=== PATIENT | male | born 1940 | race Caucasian/White ===

== ENCOUNTER 2016-09-07 10:03 | Day surgery (SDC) | payer MEDICARE ==
[2016-09-06 10:49] VITALS: BP 165/95; PULSE 81; RESP 20; TEMP 98.2; O2SAT 92
[~2016-09-07] VITALS: Ht 177.8 cm; Wt 90.9 kg
[~2016-09-07 10:03] MED LIST: BUPR300T PO; IBUP-988 PO; MULT1TAB84 PO; NEXI20CA PO; PRAV40TA2; SODIUM CHLOR 0.45% 1000 ML IV SCH; TAMS0.4C4 PO; VITA100021 SL; VITA10006 PO; VITA100064 PO; ceFAZolin 2 GM PREMIX 50 ML IV SCH
[2016-09-07 10:22] VITALS: BP 161/90; PULSE 74; RESP 20; TEMP 98.2; O2SAT 96
[2016-09-07] MEDS ORDERED: SODIUM CHLOR 0.45% 1000 ML IV SCH (10:30)
[2016-09-07] MEDS ORDERED: ceFAZolin 2 GM PREMIX 50 ML IV SCH (10:30)
[2016-09-07 10:53] LABS: AUTOMATED NEUTROPHIL # 5.4 TH/MM3 (1.8-7.7); BASOPHIL # 0.1 TH/MM3 (0-0.2); BASOPHIL % 0.7 % (0.0-2.0); EOSINOPHIL # 0.1 TH/MM3 (0-0.4); EOSINOPHIL % 1.5 % (0.0-4.0); HEMATOCRIT 51.2 % (39.0-51.0); HEMO FLAGS DIFF FINAL; LYMPH % 20.8 % (9.0-44.0); LYMPHOCYTE # 1.6 TH/MM3 (1.0-4.8); MEAN CELL VOLUME 89.5 FL (80.0-100.0); MEAN CORPUSCULAR HEMOGLOBIN 30.1 PG (27.0-34.0); MEAN CORPUSCULAR HGB CONC 33.6 % (32.0-36.0); MONO % 9.3 % (0.0-8.0); NEUT % 67.7 % (16.0-70.0); PLATELET COUNT 191 TH/MM3 (150-450); RED BLOOD COUNT 5.72 MIL/MM3 (4.50-5.90); RED CELL DISTRIBUTION WIDTH 13.8 % (11.6-17.2); WHITE BLOOD COUNT 7.9 TH/MM3 (4.0-11.0)
[2016-09-07 11:00] LABS: APTT (PATIENT) 26.6 SEC (24.3-30.1); PROTHROMBIN TIME - PATIENT 10.9 SEC (9.8-11.6)
[2016-09-07 11:03] LABS: BICARBONATE 28.1 MEQ/L (21.0-32.0); POTASSIUM 3.9 MEQ/L (3.5-5.1)
== END 2016-09-07 11:25 | disposition home or self-care (01) ==
LOC: HROP 10:03 → HRIP 10:04 → HROP 11:25
PROVIDERS: ATTEND Neurological Surgery
DX: G91.2 (Idiopathic) normal pressure hydrocephalus (principal); Z53.9 Procedure and treatment not carried out, unspecified reason
CPT/HCPCS: 80048; 85025; 85610; 85730

== ENCOUNTER 2016-09-13 09:51 | Inpatient (IN) | payer MEDICARE ==
[~2016-09-13] VITALS: Ht 177.8 cm; Wt 91.0 kg
[2016-09-13] VITALS (10 sets, daily range): BP systolic 126–150; BP diastolic 71–96; PULSE 66–89; RESP 16–20; TEMP 97.9–98.6; O2SAT 92–94
[~2016-09-13 09:51] MED LIST changes: -SODIUM CHLOR 0.45% 1000 ML IV SCH; -ceFAZolin 2 GM PREMIX 50 ML IV SCH
[2016-09-13] MEDS ORDERED: MAGNESIUM HYDROXIDE SUSP 30 ML CUP PO PRN (10:45)
[2016-09-13] MEDS ORDERED: ZOLPIDEM TARTRATE 5 MG TAB PO PRN (10:45)
[2016-09-13] MEDS ORDERED: RESP: ALBUTEROL 2.5 MG/3 ML NEB (PRN) NEB (10:45)
[2016-09-13] MEDS ORDERED: SODIUM CHLORIDE 0.9% FLUSH 5 ML FLUSH IVF PRN (10:45)
[2016-09-13] MEDS ORDERED: ceFAZolin 2 GM PREMIX 50 ML IV SCH (10:45)
[2016-09-13] MEDS ORDERED: cloNIDine HCL 0.1 MG TAB PO PRN (10:45)
[2016-09-13] MEDS ORDERED: ACETAMINOPHEN 325 MG TAB PO PRN (10:45)
[2016-09-13] MEDS: DOCUSATE SODIUM 100 MG CAP PO SCH ×2 (10:45→20:57)
[2016-09-13] MEDS ORDERED: ONDANSETRON HCL 4 MG/2 ML VIAL IV PRN (10:45)
[2016-09-13] MEDS ORDERED: ACETAMINOPHEN/HYDROcodone 325 MG/10 MG TAB PO PRN (10:45)
--- NOTE | 2016-09-13 10:57 | HHI.HP ---
HPI Service Neurosurgery Primary Care Physician Kp Hull MD Chief Complaint: NPH History of Present Illness Mr. Bahena is a 76 year old male who was seen in our office for neurosurgical evaluation at the request of Neurologist Dr. Amauri Campo for Normal Pressure Hydrocephalus. Mr. Bahena suffers from progressive gait difficulties for the past couple of years. He also complains of memory difficulties and urinary incontinence. He describes his walking as shuffling. He has good days and bad days. He denies headaches, focal weakness, vomiting, seizures, fevers or chills. His MRI Brain showed evidence of ventriculomegaly. He comes today for placement of lumbar drain. Review of Systems Constitutional: DENIES: Fever, Chills Eyes: DENIES: Diplopia Cardiovascular: DENIES: Chest pain, Palpitations Genitourinary: COMPLAINS OF: Urinary incontinence Musculoskeletal: COMPLAINS OF: Back pain Neurologic: COMPLAINS OF: Abnormal gait, Poor Balance Psychiatric: DENIES: Hallucinations Past Family Social History Allergies: Coded Allergies: Iodine (Verified Adverse Reaction, Intermediate, Anaphylaxis, 09/07/16) Past Medical History Hyperlipidemia Depression GERD Past Surgical History Left rotator cuff surgery Reported Medications Pravastatin 40 Mg Family History MOTHER - colon CA SISTER - breast CA FATHER- Parkinson's disease Social History Alcohol Intake: 0-2 drinks per day Substance Use - denies use Former Smoker Physical Exam Vital Signs Vital Signs Date Time Temp Pulse Resp B/P Pulse Ox O2 Delivery O2 Flow Rate FiO2 09/13/16 10:28 97.9 81 20 144/96 92 Physical Exam Mr. Bahena is alert, awake and oriented to person, place, and month, he has difficulty with year. Speech is fluent. Follows commands well. Memory is 3/ 3 immediate recall, 1/3 after 5 minutes. Cranial nerve examination demonstrates the pupils to be equal, round, and reactive to light. Extra-ocular movements are intact. Facial motor and sensory function are normal and symmetrical. Sternocleidomastoid and trapezius muscles have normal and symmetrical strength. Other cranial nerves are intact. Neck is soft and supple Muscle strength is 5/5 in all muscle groups of both upper extremities including deltoid, biceps, triceps, brachioradialis, wrist extension and timber sprinkler. In the lower extremities, strength is 5/5 in both iliopsoas, quadriceps, hamstrings, plantar flexion, dorsiflexion, and extensor hallicus longus. Sensory examination is intact to light touch in both the upper and lower extremities, symmetrically. Deep tendon reflexes are 1+ and symmetrical in the biceps, triceps, and brachioradialis, bilaterally, in the upper extremities. In the lower extremities , the patellar and Achilles are 1+, bilaterally. There is a bilateral plantar flexion response. Hoffmanns sign is negative. There is no clonus or other abnormal reflexes noted. Cerebellar examination is intact to [id number] test Gait evaluation noted in the office he ambulated unassisted, mildly unsteady with slight bent forward posture, he has decreased arm swings, and mild loss of heel strikes with 3 point pivot turn Imaging MRI Brain 07/10/16 [facility] Ventricular dilation disproportionate to the extra-axial spaces suggestive of NPH Attending Statement We have discussed the physiopathology and clinical symptomatology of patients with normal pressure hydrocephalus. These patients usually present with a triad of gait imbalance, memory loss or mild dementia, and urinary incontinence. Without treatment, there is a slow tendency to progression, and in some patient s the symptomatology could be improved by drainage of cerebrospinal fluid (CSF) . In some cases of suspected normal pressure hydrocephalus, potential improvement with a permanent shunt can be tested by placement of a temporary lumbar drain and daily serial gait assessments. When the patients gait improves after CSF drainage, they may be a candidate for placement of a permanent ventriculoperitoneal shunt. He will be undergoing placement of lumbar drain with CSF drainage per protocol. Neuro: neuro checks every 4 hours Medical management consulted for assistance. Neurology, Dr. Campo consulted to assist in evaluation. Protonix for GI prophylaxis. DVT: SCD and TEDs for dvt prophylaxis. Chemical prophylaxis contraindicated at this time due to lumbar drain. Respiratory: IS every hour, breathing treatments with nebulizers prn PT evaluation before and daily following lumbar drainage Nutrition: Heart Healthy Diet Mary Dixon September 13, 2016 10:57 Mary Dixon September 13, 2016 10:57
[2016-09-13] MEDS ORDERED: MIDAZOLAM HCL 5 MG/5 ML VIAL ONE (11:25)
[2016-09-13] MEDS ORDERED: fentaNYL CITRATE 250 MCG/5 ML AMP ONE (11:26)
[2016-09-13] MEDS ORDERED: PILL SPLITTER OTHER PRN (11:30)
--- NOTE | 2016-09-13 12:19 | PD.RAD ---
Post Procedure Progress Note Pre Procedure Diagnosis: (1) NPH (normal pressure hydrocephalus) Post Procedure Diagnosis: (1) NPH (normal pressure hydrocephalus) Procedure Date: September 13, 2016 Supervising Radiologist: Deven Mehta JR Proceduralist/Assist: Cindy Cantor, RT(R)(), Maxine Baker RT(R)(CV) Anesthesia: Conscious Sedation Plan of Activity Patient to Unit: ROPU Patient Condition: Good See PACS Report for procedural detail/treatment Spinal Procedure Lumbar Drain L3-L4 Fluid Removal (CCs): 12 Fluid Description: Clear Puncture Time: 11:45 Findings: Opening pressure: 33 cmH2O. Tip of cath at T12 Jr. Tyson,Deven Oates MD September 13, 2016 12:19
[2016-09-13 13:57] LABS: GROSS BLOOD TUBE #1 TRACE (0); SUPERNATE COLOR TUBE #1 CLEAR (CLEAR); VOLUME TUBE # 1 4.4 ML
[2016-09-13 13:58] LABS: CSF LYMPHOCYTES 100 %; CSF NEUTROPHILS 0 %; GROSS BLOOD TUBE #2 0 (0); GROSS BLOOD TUBE #3 0 (0); GROSS BLOOD TUBE #4 0 (0); SUPERNATE COLOR TUBE #2 CLEAR (CLEAR); SUPERNATE COLOR TUBE #3 CLEAR (CLEAR); SUPERNATE COLOR TUBE #4 CLEAR (CLEAR); VOLUME TUBE # 2 2.5 ML; VOLUME TUBE # 3 2.9 ML; WBC TUBE #4 5 /MM3 (0-10)
--- NOTE | 2016-09-13 14:28 | RADRPT ---
EXAM DATE/TIME: 09/13/2016 11:23 [facility] COMPARISON: No previous studies available for comparison. INDICATIONS : Abnormal gait and balance. MEDICAL HISTORY : 1.Hyperlipidemia 2.Depression 3. GERD 4. Spinal stenosis 5. Incontinence SURGIAL HISTORY : 1. Rotator cuff repair ENCOUNTER: Initial ACUITY: 1 month PAIN SCORE: 0/10 LUMBAR PUNCTURE TIME: 1145 hours FLUORO TIME: 2.7 minutes IMAGE SERIES: 0 SEDATION TIME: 30 minutes LEVEL: Tip of lumbar drain was placed at T11-T12 disc space OPENING PRESSURE: 33 cm of water FLUID: 12 cc of clear CSF was collected and sent to the laboratory for analysis. MEDICATION(S): 1.) 2.5 mg midazolam (Versed) IV 2.) 125 mcg fentanyl (Sublimaze) IV Prophylactic antibiotics were administered with appropriate pre-procedure timing. DEVICE(S): 1.) 5 Faroese lumbar drain catheter PROCEDURE : 1. Fluoroscopically guided lumbar drain placement. 2. Conscious sedation with continuous EKG and oximetry monitoring. The risks, benefits and alternatives to the procedure were explained and verbal and written consent w as obtained. The site was prepped in sterile fashion. Full sterile technique was used, including ca p, mask, sterile gloves and gown and a large sterile sheet. Hand hygiene and 2% chlorhexidine and/or betadine/alcohol prep was utilized per protocol for cutaneous antisepsis. The skin and subcutaneous tissues were infiltrated with local anesthetic solution. With fluoroscopic guidance the lumbar thecal sac was punctured with a 14 gauge Touhy needle and a lum bar drain was placed with its tip at the level as described above and the catheter was sutured in gregorio ce. CSF was identified returning from the catheter at the termination of the procedure. Conscious sedation was performed with the prescribed dosages and duration as above in the presence of an independent trained radiology nurse to assist in the monitoring of the patient. EKG and oximetry remained stable throughout the procedure. The patient tolerated the procedure well and there were n o complications. The patient was sent to post anesthesia recovery in stable condition. CONCLUSION: Uncomplicated lumbar drain placement as above. Opening pressure at 33 cm of water. Samples of CSF sen t to the lab. Deven Mehta Jr., MD on September 13, 2016 at 14:25 Board Certified Radiologist. This report was verified electronically.
--- NOTE | 2016-09-13 16:02 | PD.CONS ---
HPI Service [facility] Hospitalists Consult Requested By Dr. Gonzalez Reason for Consult Medical management Primary Care Physician Kp Hull MD Diagnoses: History of Present Illness This a pleasant 76-year-old male with significant past medical history of NPH. Patient endorses progressive gait difficulties over the last couple years associated with problems with memory and urinary incontinence. Indicates he walks with a shuffle and has had a couple of falls in the last 2 weeks. He has been followed by neurologist Dr. Amauri Campo. He had an MRI of the brain that did show evidence of ventriculomegaly. He was referred to Dr. Gonzalez. Patient was admitted and underwent placement of lumbar drain. Patient is now on evaluated in ROPU. He tolerated procedure well, denies any discomfort. Hospitalist services are requested for medical management. (Hannah Hooks ) Review of Systems Constitutional: DENIES: Diaphoretic episodes, Fatigue, Fever, Weight gain, Weight loss, Chills, Dizziness, Change in appetite, Night Sweats Endocrine: DENIES: Heat/cold intolerance, Polydipsia, Polyuria, Polyphagia Eyes: DENIES: Blurred vision, Diplopia, Eye inflammation, Eye pain, Vision loss , Photosensitivity, Double Vision Ears, nose, mouth, throat: DENIES: Tinnitus, Hearing loss, Vertigo, Nasal discharge, Oral lesions, Throat pain, Hoarseness, Ear Pain, Running Nose, Epistaxis, Sinus Pain, Toothache, Odynophagia Respiratory: DENIES: Apneas, Cough, Snoring, Wheezing, Hemoptysis, Sputum production, Shortness of breath Cardiovascular: DENIES: Chest pain, Palpitations, Syncope, Dyspnea on Exertion , PND, Lower Extremity Edema, Orthopnea, Claudication Gastrointestinal: DENIES: Abdominal pain, Black stools, Bloody stools, Constipation, Diarrhea, Nausea, Vomiting, Difficulty Swallowing, Anorexia Genitourinary: COMPLAINS OF: Urinary incontinence, DENIES: Sexual dysfunction , Urinary frequency, Urgency, Hematuria, Dysuria, Nocturia, Penile Discharge, Testicular Pain, Testicular Swelling Musculoskeletal: DENIES: Joint pain, Muscle aches, Stiffness, Joint Swelling, Back pain, Neck pain Integumentary: DENIES: Abnormal pigmentation, Nail changes, Pruritus, Rash Hematologic/lymphatic: DENIES: Bruising, Lymphadenopathy Immunologic/allergic: DENIES: Eczema, Urticaria Neurologic: COMPLAINS OF: Abnormal gait, Poor Balance, DENIES: Headache, Localized weakness, Paresthesias, Seizures, Speech Problems, Tremor Psychiatric: COMPLAINS OF: Confusion (memory difficulty), DENIES: Anxiety, Mood changes, Depression, Hallucinations, Agitation, Suicidal Ideation, Homicidal Ideation, Delusions (Hannah Hooks) Past Family Social History Past Medical History Spinal stenosis Urinary incontinence Memory problems Spinal stenosis Hyperlipidemia Depression GERD Past Surgical History Left rotator cuff surgery Reported Medications Reported Meds & Active Scripts Active Reported Advil (Ibuprofen) 200 Mg Tab 400 Mg PO BID Vitamin D (Cholecalciferol) 1,000 Unit Tab 2,000 Units PO DAILY Multivitamin Adults (Multiple Vitamins W/ Minerals) 1 Tab 1 Tab PO DAILY Vitamin E 1,000 Unit Cap 1,000 Units PO DAILY Vitamin B-12 (Cyanocobalamin) 1,000 Mcg Subl 500 Mcg SL DAILY Nexium (Esomeprazole DR) 20 Mg Capdr 20 Mg PO DAILY Bupropion HCl ER 24 HR (Bupropion HCl) 300 Mg Tab 300 Mg PO DAILY Tamsulosin (Tamsulosin HCl) 0.4 Mg Cap 0.4 Mg PO HS Pravastatin 40 Mg Tab (Hannah Hooks) Allergies: Coded Allergies: Iodine (Verified Adverse Reaction, Intermediate, Anaphylaxis, 09/07/16) Active Ordered Medications Inpatient Medications Acetaminophen (Tylenol) 650 mg Q4H PRN PO TEMPERATURE > 101.5 F; Start 09/13/16 at 10:45 Acetaminophen/ Hydrocodone Bitart ([place]dwell 10-325 Mg) 2 tab Q4H PRN PO PAIN SCALE 6 TO 10; Start 09/13/16 at 10:45 Albuterol Sulfate 2.5 mg 2.5 mg Q4HR NEB PRN NEB WHEEZING; Start 09/13/16 at 10: 45 Bupropion HCl (Wellbutrin Sr) 150 mg BID PO ; Start 09/14/16 at 09:00 Cefazolin Sodium/ Dextrose (Ancef 2 Gm Premix) 50 ml @ 100 mls/hr FLY WORKER IV Last administered on 09/13/16t 11:43; Start 09/13/16 at 10:45; Stop 09/16/16 at 10: 44 Cholecalciferol (Vitamin D3) 2,000 units DAILY PO ; Start 09/14/16 at 09:00 Clonidine (Catapres) 0.1 mg Q6H PRN PO SYS BP GREATER THAN 170 MMHG; Start 09/13 at 10:45 Cyanocobalamin (Vitamin B12) 500 mcg DAILY PO ; Start 09/14/16 at 09:00 Docusate Sodium (Colace) 100 mg BID PO ; Start 09/13/16 at 10:45 IV Flush (NS Flush) 2 ml BID IVF ; Start 09/13/16 at 10:45 Magnesium Hydroxide (Milk Of Magnesia Liq) 30 ml DAILY PRN PO CONSTIPATION; Start 09/13/16 at 10:45 Miscellaneous (Pill Splitter) 1 ea UNSCH PRN OTHER SEE LABEL COMMENTS; Start at 11:30 Multivitamins/ Minerals Therapeutic (Theragran M Tab) 1 tab DAILY PO ; Start 09/14/16 at 09:00 Ondansetron HCl (Zofran Inj) 4 mg Q6H PRN IV NAUSEA OR VOMITING; Start 09/13/16 at 10:45 Pantoprazole Sodium (Protonix) 40 mg DAILY PO ; Start 09/13/16 at 10:45 Pravastatin Sodium (Pravachol) 40 mg HS PO ; Start 09/13/16 at 21:00 Tamsulosin HCl (Flomax) 0.4 mg HS PO ; Start 09/13/16 at 21:00 Vitamin E (Vitamin E) 800 units DAILY PO ; Start 09/14/16 at 09:00 Zolpidem Tartrate (Ambien) 5 mg HS PRN PO INSOMNIA; Start 09/13/16 at 10:45 Family History Mother with history of colon cancer Sister With history of breast cancer Father with history of Parkinson's disease Social History Patient is , lives at home and . Doesn't use any assistive devices. Drinks small glass of scotch a day. Quit smoking in the 1960s. No illegal drug use. (Hannah Hooks) Physical Exam Vital Signs Vital Signs Date Time Temp Pulse Resp B/P Pulse Ox O2 Delivery O2 Flow Rate FiO2 09/13/16 10:36 92 Room Air 09/13/16 10:28 97.9 81 20 144/96 92 Physical Exam GENERAL: This is a well-nourished, well-developed patient, in no apparent distress. SKIN: No rashes, ecchymoses or lesions. Cool and dry. HEAD: Atraumatic. Normocephalic. No temporal or scalp tenderness. EYES: Pupils equal round and reactive. Extraocular motions intact. No scleral icterus. No injection or drainage. ENT: Nose without bleeding, purulent drainage or septal hematoma. Throat without erythema, tonsillar hypertrophy or exudate. Uvula midline. Airway patent. NECK: Trachea midline. No JVD or lymphadenopathy. Supple, nontender, no meningeal signs. CARDIOVASCULAR: Regular rate and rhythm without murmurs, gallops, or rubs. RESPIRATORY: Clear to auscultation. Breath sounds equal bilaterally. No wheezes , rales, or rhonchi. GASTROINTESTINAL: Abdomen soft, non-tender, nondistended. No hepato-splenomegaly , or palpable masses. No guarding. MUSCULOSKELETAL: Extremities without clubbing, cyanosis, or edema. No joint tenderness, effusion, or edema noted. No calf tenderness. Negative Homans sign bilaterally. NEUROLOGICAL: Awake and alert. Cranial nerves II through XII intact. Motor and sensory grossly within normal limits. Five out of 5 muscle strength in all muscle groups. Normal speech. Laboratory Laboratory Tests Test 09/13/16 11:48 CSF Volume (Tube 1) 4.4 CSF Supernatant Color (tube 1) CLEAR CSF Gross Blood (Tube 1) TRACE CSF Volume (Tube 2) 2.5 CSF Supernatant Color (tube 2) CLEAR CSF Gross Blood (Tube 2) 0 CSF Volume (Tube 3) 2.9 CSF Supernatant Color (tube 3) CLEAR CSF Gross Blood (Tube 3) 0 CSF Volume (Tube 4) 3.0 CSF Supernatant Color (tube 4) CLEAR CSF Gross Blood (Tube 4) 0 CSF WBC (Tube 4) 5 CSF RBC (Tube 4) 0 CSF Neutrophils 0 CSF Lymphocytes 100 CSF Glucose 60 CSF Total Protein 55.9 Date/Time Procedure Status Source Growth 09/13/16 11:48 Gram Stain - Final Resulted Cerebral Spinal Fluid Lumbar Puncture 09/13/16 11:48 CSF Culture Resulted Cerebral Spinal Fluid Lumbar Puncture Pending (Hannah Hooks) Imaging Last Impressions Lumbar Puncture Fluoroscopy 09/13/16 1032 Signed Impressions: Service Date/Time: Tuesday, September 13, 2016 11:23 - CONCLUSION: Uncomplicated lumbar drain placement as above. Opening pressure at 33 cm of water. Samples of CSF sent to the lab. Deven Mehta Jr., MD (Hannah Hooks) A/P Diagnosis: (1) NPH (normal pressure hydrocephalus) (2) Dyslipidemia (3) Depression (4) Memory deficit (5) Falls Assessment and Plan Thank you for this consultation, we will assist with medical management 76-year-old male with recent diagnosis of NPH, endorses history of progressive gait difficulties associated with poor memory and urinary incontinence. Underwent placement of lumbar drain. Continue with neuro checks Lumbar drain management -Monitor CSF results -Physical therapy orders per Dr. Gonzalez Dyslipidemia Continue home medications Depression, stable Continue home medications History of falls, has had 2 in the last 2 weeks. Physical therapy for evaluation and treatment Will need home health care with physical therapy when discharge Home medications reviewed, already initiated SCDs for DVT prophylaxis Plan of care has been discussed with the patient and his , RN and attending. Further management of the patient will be dependent on the hospital course This patient was seen by myself and Dr. Rangel, this consultation is written on his behalf (Hannah Hooks) Assessment and Plan pt is seen & Examined d/w PT d/w Hannah agree w above cont current tx am labs PT eval will f/u (Krishan Rangel MD) Problem Qualifiers (1) Depression: Qualified Code: F32.9 - Depression, unspecified depression type (2) Falls: Qualified Code: W19.XXXD - Falls, subsequent encounter Hannah Hooks September 13, 2016 16:02 Krishan Rangel MD September 13, 2016 17:20
--- NOTE | 2016-09-13 17:43 | PD.CONS ---
History of Present Illness Service Neurology Consult Requested By nsx Reason for Consult nph Primary Care Physician Kp Hull MD History of Present Illness 76-year-old male with significant past medical history of NPH. Patient endorses progressive gait difficulties over the last couple years associated with problems with memory and urinary incontinence. Indicates he walks with a shuffle and has had a couple of falls in the last 2 weeks. MRI of the brain that did show evidence of ventriculomegaly. He is admitted for lp drain trial. He is followed in our office. he has insomnia, depression as co-morbidities. Review of Systems as above and admit hp Past Family Social History Past Medical History Spinal stenosis Urinary incontinence Memory problems Spinal stenosis Hyperlipidemia Depression GERD Past Surgical History Left rotator cuff surgery Reported Medications Reported Meds & Active Scripts Active Reported Advil (Ibuprofen) 200 Mg Tab 400 Mg PO BID Vitamin D (Cholecalciferol) 1,000 Unit Tab 2,000 Units PO DAILY Multivitamin Adults (Multiple Vitamins W/ Minerals) 1 Tab 1 Tab PO DAILY Vitamin E 1,000 Unit Cap 1,000 Units PO DAILY Vitamin B-12 (Cyanocobalamin) 1,000 Mcg Subl 500 Mcg SL DAILY Nexium (Esomeprazole DR) 20 Mg Capdr 20 Mg PO DAILY Bupropion HCl ER 24 HR (Bupropion HCl) 300 Mg Tab 300 Mg PO DAILY Tamsulosin (Tamsulosin HCl) 0.4 Mg Cap 0.4 Mg PO HS Allergies: Coded Allergies: Iodine (Verified Adverse Reaction, Intermediate, Anaphylaxis, 09/07/16) Family History Father with history of Parkinson's disease Social History Patient is , lives at home and . rare etohQuit smoking No illegal drug use Review of Systems All other ROS: ROS reviewed as documented in chart Past Family Social History Allergies: Coded Allergies: Iodine (Verified Adverse Reaction, Intermediate, Anaphylaxis, 09/07/16) Active Ordered Medications Current Medications Medications (Trade) Dose Ordered Sig/Marlene Route Start Time Stop Time Status Last Admin (NS Flush) 2 ml UNSCH PRN IVF 09/13/16 10:45 (NS Flush) 2 ml BID IVF 09/13/16 10:45 (Colace) 100 mg BID PO 09/13/16 10:45 (Milk Of Magnesia Liq) 30 ml DAILY PRN PO 09/13/16 10:45 (Protonix) 40 mg DAILY PO 09/13/16 10:45 (Zofran Inj) 4 mg Q6H PRN IV 09/13/16 10:45 (Sayre 10-325 Mg) 1 tab Q4H PRN PO 09/13/16 10:45 (Sayre 10-325 Mg) 2 tab Q4H PRN PO 09/13/16 10:45 (Catapres) 0.1 mg Q6H PRN PO 09/13/16 10:45 (Tylenol) 650 mg Q4H PRN PO 09/13/16 10:45 (Ambien) 5 mg HS PRN PO 09/13/16 10:45 (Wellbutrin Sr) 150 mg BID PO 09/14/16 09:00 (Vitamin D3) 2,000 units DAILY PO 09/14/16 09:00 (Vitamin B12) 500 mcg DAILY PO 09/14/16 09:00 (Theragran M Tab) 1 tab DAILY PO 09/14/16 09:00 (Pravachol) 40 mg HS PO 09/13/16 21:00 (Flomax) 0.4 mg HS PO 09/13/16 21:00 (Vitamin E) 800 units DAILY PO 09/14/16 09:00 (Pill Splitter) 1 ea UNSCH PRN OTHER 09/13/16 11:30 Exam I&O / VS Vital Signs Date Time Temp Pulse Resp B/P Pulse Ox O2 Delivery O2 Flow Rate FiO2 09/13/16 10:36 92 Room Air 09/13/16 10:28 97.9 81 20 144/96 92 General: Alert and Oriented, No acute distress Eye: EOMI Respiratory: Non-labored respirations Neurologic: Alert, Oriented, Normal motor, CN II-XII intact, Normal DTR's Psychiatric: Cooperative, Appropriate mood & affect, Normal judgement, Non- suicidal Review/Management Diagnosis/Plan: (1) NPH (normal pressure hydrocephalus) Plan: lumbar drain trial follow exam/gait (2) Depression Plan: wellbutrin (3) Insomnia Plan: ambien (4) Dyslipidemia Plan: statin Problem Qualifiers (1) Depression: Qualified Code: F32.9 - Depression, unspecified depression type (2) Insomnia: Qualified Code: G47.00 - Insomnia, unspecified type Darrell Naqvi MD September 13, 2016 17:43
[2016-09-13] MEDS: PRAVASTATIN SOD 40 MG TAB PO SCH (20:44)
[2016-09-13] MEDS: SODIUM CHLORIDE 0.9% FLUSH 5 ML FLUSH IVF SCH (20:44)
[2016-09-13] MEDS ORDERED: TAMSULOSIN HCL 0.4 MG CAP PO SCH (21:00)
[2016-09-14] VITALS: BP 154/83; PULSE 67; RESP 20; TEMP 98.9; O2SAT 95
[2016-09-14 05:55] VITALS: BP 147/69; PULSE 65; RESP 20; TEMP 98; O2SAT 95
[2016-09-14] MEDS: DOCUSATE SODIUM 100 MG CAP PO SCH ×2 (07:43→21:21)
[2016-09-14 07:44] LABS: HEMATOCRIT 49.3 % (39.0-51.0); MEAN CELL VOLUME 89.1 FL (80.0-100.0); MEAN CORPUSCULAR HEMOGLOBIN 30.6 PG (27.0-34.0); MEAN CORPUSCULAR HGB CONC 34.3 % (32.0-36.0); PLATELET COUNT 169 TH/MM3 (150-450); RED BLOOD COUNT 5.53 MIL/MM3 (4.50-5.90); RED CELL DISTRIBUTION WIDTH 13.4 % (11.6-17.2); REVIEW FLAG FINAL; WHITE BLOOD COUNT 8.1 TH/MM3 (4.0-11.0)
[2016-09-14] MEDS: PANTOPRAZOLE SOD 40 MG DELAYED RELEASE TAB PO SCH (07:45)
[2016-09-14] MEDS: CHOLECALCIFEROL (VIT D3) 1000 UNIT TAB PO SCH (07:45)
[2016-09-14] MEDS: MULTIVITAMINS/MINERALS THERAPEUTIC TAB PO SCH (07:45)
[2016-09-14] MEDS: VITAMIN E 400 UNIT CAP PO SCH (07:45)
[2016-09-14] MEDS: SODIUM CHLORIDE 0.9% FLUSH 5 ML FLUSH IVF SCH ×2 (07:46→21:00)
[2016-09-14] MEDS: CYANOCOBALAMIN 1,000 MCG TAB PO SCH (07:46)
[2016-09-14] MEDS: buPROPion HCL 150 MG SUSTAINED RELEASE TAB PO SCH ×2 (07:46→21:21)
[2016-09-14 08:05] LABS: BICARBONATE 28.7 MEQ/L (21.0-32.0); POTASSIUM 4.1 MEQ/L (3.5-5.1)
[2016-09-14 08:11] VITALS: BP 138/70; PULSE 63; RESP 18; TEMP 95.7; O2SAT 95
[2016-09-14] MEDS ORDERED: TAMSULOSIN HCL 0.4 MG CAP PO SCH (09:00)
[2016-09-14] MEDS: ACETAMINOPHEN/HYDROcodone 325 MG/10 MG TAB PO PRN (09:43)
--- NOTE | 2016-09-14 11:01 | HHI.PR ---
Subjective Remarks Forgetful Oriented 3 Ambulated with PT, believes that his gait was better Lumbar drain in place No chest pain No shortness of breath No fever at bedside Objective Objective Results - Vital Signs Date Time Temp Pulse Resp B/P Pulse Ox O2 Delivery O2 Flow Rate FiO2 09/14/16 08:11 95.7 63 18 138/70 95 09/14/16 05:55 98.0 65 20 147/69 95 09/14/16 00:30 Room Air 09/14/16 00:00 98.9 67 20 154/83 95 09/13/16 20:00 98.2 66 18 139/79 94 09/13/16 18:24 98.6 73 20 139/86 93 09/13/16 15:00 81 16 139/75 94 09/13/16 14:00 75 16 126/71 94 09/13/16 13:30 86 16 133/73 94 09/13/16 13:00 80 16 129/76 94 09/13/16 12:30 69 16 132/87 94 09/13/16 12:15 69 16 145/83 94 09/13/16 12:10 98.3 89 16 150/82 94 I/O 09/13/16 09/13/16 09/13/16 09/14/16 09/14/16 09/14/16 07:00 15:00 23:00 07:00 15:00 23:00 Intake Total 240 ml Output Total 40 ml 230 ml 620 ml 30 ml Balance -40 ml 10 ml -620 ml -30 ml Intake Oral 240 ml Output Urine Total 200 ml 500 ml Drainage Total 40 ml 30 ml 120 ml 30 ml # Bowel Movements 0 0 Result Diagram: 09/14/16 0605 09/14/16 0605 Imaging Last Impressions Lumbar Puncture Fluoroscopy 09/13/16 1032 Signed Impressions: Service Date/Time: Tuesday, September 13, 2016 11:23 - CONCLUSION: Uncomplicated lumbar drain placement as above. Opening pressure at 33 cm of water. Samples of CSF sent to the lab. Deven Mehta Jr., MD Other Results Laboratory Tests Test 09/13/16 09/14/16 11:48 06:05 CSF Volume (Tube 1) 4.4 CSF Supernatant Color (tube 1) CLEAR CSF Gross Blood (Tube 1) TRACE CSF Volume (Tube 2) 2.5 CSF Supernatant Color (tube 2) CLEAR CSF Gross Blood (Tube 2) 0 CSF Volume (Tube 3) 2.9 CSF Supernatant Color (tube 3) CLEAR CSF Gross Blood (Tube 3) 0 CSF Volume (Tube 4) 3.0 CSF Supernatant Color (tube 4) CLEAR CSF Gross Blood (Tube 4) 0 CSF WBC (Tube 4) 5 CSF RBC (Tube 4) 0 CSF Neutrophils 0 CSF Lymphocytes 100 CSF Glucose 60 CSF Total Protein 55.9 White Blood Count 8.1 Red Blood Count 5.53 Hemoglobin 16.9 Hematocrit 49.3 Mean Corpuscular Volume 89.1 Mean Corpuscular Hemoglobin 30.6 Mean Corpuscular Hemoglobin 34.3 Concent Red Cell Distribution Width 13.4 Platelet Count 169 Mean Platelet Volume 10.3 Sodium Level 139 Potassium Level 4.1 Chloride Level 104 Carbon Dioxide Level 28.7 Anion Gap 6 Blood Urea Nitrogen 15 Creatinine 1.12 Estimat Glomerular Filtration 64 Rate Random Glucose 98 Calcium Level 9.1 Date/Time Procedure Status Source Growth 09/13/16 11:48 Gram Stain - Final Resulted Cerebral Spinal Fluid Lumbar Puncture 09/13/16 11:48 CSF Culture - Preliminary Resulted Cerebral Spinal Fluid Lumbar Puncture NO GROWTH IN 24 HOURS. ROS General: Other (forgetful, 12 point ROS completed, negative except as noted above ) Neuro/MS: Other (unsteady gait ) Physical Exam Physical Exam GENERAL: This is a well-nourished, well-developed patient, in no apparent distress. SKIN: No rashes, ecchymoses or lesions. Cool and dry. HEAD: Atraumatic. Normocephalic. No temporal or scalp tenderness. EYES: Pupils equal round and reactive. Extraocular motions intact. No scleral icterus. No injection or drainage. ENT: Nose without bleeding, purulent drainage or septal hematoma. Throat without erythema, tonsillar hypertrophy or exudate. Uvula midline. Airway patent. NECK: Trachea midline. No JVD or lymphadenopathy. Supple, nontender, no meningeal signs. CARDIOVASCULAR: Regular rate and rhythm without murmurs, gallops, or rubs. RESPIRATORY: Clear to auscultation. Breath sounds equal bilaterally. No wheezes , rales, or rhonchi. GASTROINTESTINAL: Abdomen soft, non-tender, nondistended. No hepato-splenomegaly , or palpable masses. No guarding. MUSCULOSKELETAL: Extremities without clubbing, cyanosis, or edema. No joint tenderness, effusion, or edema noted. No calf tenderness. Negative Homans sign bilaterally. Lumbar drain in place NEUROLOGICAL: Awake and alert. Cranial nerves II through XII intact. Motor and sensory grossly within normal limits. Five out of 5 muscle strength in all muscle groups. Normal speech Urinary Catheter: No Vascular Central Line Catheter: No A/P Diagnosis: (1) NPH (normal pressure hydrocephalus) (2) Dyslipidemia (3) Depression (4) Memory deficit (5) Falls Assessment and Plan 76-year-old male with recent diagnosis of NPH, endorses history of progressive gait difficulties associated with poor memory and urinary incontinence. Underwent placement of lumbar drain. Continue with neuro checks Lumbar drain management to continue for now. Further recommendations per Dr. Gonzalez -Monitor CSF results -PT for ambulation -Dr. Juan following Dyslipidemia Continue home medications Depression, stable Continue home medications History of falls, has had 2 in the last 2 weeks. Physical therapy for evaluation and treatment Will need home health care with physical therapy when discharge SCDs for DVT prophylaxis continue with present tx labs reviewed, stable continue to monitor D/W RN D/W Dr. Rangel D/W pt. This patient was seen by myself and Dr. Rangel, this note is written on his behalf Problem Qualifiers (1) Depression: Qualified Code: F32.9 - Depression, unspecified depression type (2) Falls: Qualified Code: W19.XXXD - Falls, subsequent encounter Hannah Hooks September 14, 2016 11:01
--- NOTE | 2016-09-14 11:53 | HHI.NSPN ---
(Mary Dixon) Note Status Status: Progress Note (Mary Dixon) Interval History Interval History day 1 s/p placement of lumbar drain, pt currently ambulating with PT, taking longer length of stride compared to baseline. He denies headaches, pain, nausea or vomiting. (Mary Dixon) Labs, Micro, & Vital Signs Results Date Time Temp Pulse Resp B/P Pulse Ox O2 Delivery O2 Flow Rate FiO2 09/14/16 08:11 95.7 63 18 138/70 95 09/14/16 05:55 98.0 65 20 147/69 95 09/14/16 00:30 Room Air 09/14/16 00:00 98.9 67 20 154/83 95 09/13/16 20:00 98.2 66 18 139/79 94 09/13/16 18:24 98.6 73 20 139/86 93 09/13/16 15:00 81 16 139/75 94 09/13/16 14:00 75 16 126/71 94 09/13/16 13:30 86 16 133/73 94 09/13/16 13:00 80 16 129/76 94 09/13/16 12:30 69 16 132/87 94 09/13/16 12:15 69 16 145/83 94 09/13/16 12:10 98.3 89 16 150/82 94 09/14/16 07:00 Intake Total 240 ml Output Total 890 ml Balance -650 ml Constitutional Vital Signs Date Time Temp Pulse Resp B/P Pulse Ox O2 Delivery O2 Flow Rate FiO2 09/14/16 08:11 95.7 63 18 138/70 95 09/14/16 05:55 98.0 65 20 147/69 95 09/14/16 00:30 Room Air 09/14/16 00:00 98.9 67 20 154/83 95 09/13/16 20:00 98.2 66 18 139/79 94 09/13/16 18:24 98.6 73 20 139/86 93 09/13/16 15:00 81 16 139/75 94 09/13/16 14:00 75 16 126/71 94 09/13/16 13:30 86 16 133/73 94 09/13/16 13:00 80 16 129/76 94 09/13/16 12:30 69 16 132/87 94 09/13/16 12:15 69 16 145/83 94 09/13/16 12:10 98.3 89 16 150/82 94 09/14/16 07:00 Intake Total 240 ml Output Total 890 ml Balance -650 ml (Mary Dixon) Review of Systems/Exam Exam Mr. Bahena is alert. Speech is fluent. Lumbar drain in place, secured, currently clamped. CSF clear. Cranial nerve examination: pupils equal, round, and reactive to light. EOMs are intact. Facial motor are normal and symmetrical. Sternocleidomastoid and trapezius muscles have normal and symmetrical strength. Other cranial nerves are intact. Neck is soft and supple. Muscle strength is 5/5 in all muscle groups of both upper extremities including deltoid, biceps, triceps and knowledge management consultant. In the lower extremities, strength is 5/5 in both iliopsoas, quadriceps, hamstrings, plantar flexion, dorsiflexion, and extensor hallicus longus. Sensory examination is intact to light touch in both the upper and lower extremities, symmetrically. Gait: ambulated unassisted appears to be walking with improved length of stride compared to his evaluation in the office (Mary Dixon) Medications Current Medications Current Medications Medications (Trade) Dose Ordered Sig/Marlene Route PRN Reason Start Time Stop Time Status Last Admin Dose Admin IV Flush (NS Flush) 2 ml UNSCH PRN IVF FLUSH AFTER USING IV ACCESS 09/13/16 10:45 IV Flush (NS Flush) 2 ml BID IVF 09/13/16 10:45 09/14/16 07:46 Docusate Sodium (Colace) 100 mg BID PO 09/13/16 10:45 Magnesium Hydroxide (Milk Of Magnesia Liq) 30 ml DAILY PRN PO CONSTIPATION 09/13/16 10:45 Pantoprazole Sodium (Protonix) 40 mg DAILY PO 09/13/16 10:45 09/14/16 07:45 Ondansetron HCl (Zofran Inj) 4 mg Q6H PRN IV NAUSEA OR VOMITING 09/13/16 10:45 Acetaminophen/ Hydrocodone Bitart ([place] 10-325 Mg) 1 tab Q4H PRN PO PAIN SCALE 1 TO 5 09/13/16 10:45 Acetaminophen/ Hydrocodone Bitart ([place] 10-325 Mg) 2 tab Q4H PRN PO PAIN SCALE 6 TO 10 09/13/16 10:45 09/14/16 09:43 Clonidine (Catapres) 0.1 mg Q6H PRN PO SYS BP GREATER THAN 170 MMHG 09/13/16 10:45 Acetaminophen (Tylenol) 650 mg Q4H PRN PO TEMPERATURE > 101.5 F 09/13/16 10:45 Zolpidem Tartrate (Ambien) 5 mg HS PRN PO INSOMNIA 09/13/16 10:45 09/13/16 20:51 Bupropion HCl (Wellbutrin Sr) 150 mg BID PO 09/14/16 09:00 09/14/16 07:46 Cholecalciferol (Vitamin D3) 2,000 units DAILY PO 09/14/16 09:00 09/14/16 07:45 Cyanocobalamin (Vitamin B12) 500 mcg DAILY PO 09/14/16 09:00 09/14/16 07:46 Multivitamins/ Minerals Therapeutic (Theragran M Tab) 1 tab DAILY PO 09/14/16 09:00 09/14/16 07:45 Pravastatin Sodium (Pravachol) 40 mg HS PO 09/13/16 21:00 09/13/16 20:44 Vitamin E (Vitamin E) 800 units DAILY PO 09/14/16 09:00 09/14/16 07:45 Miscellaneous (Pill Splitter) 1 ea UNSCH PRN OTHER SEE LABEL COMMENTS 09/13/16 11:30 Tamsulosin HCl (Flomax) 0.4 mg DAILY PO 09/15/16 09:00 (Mary Dixon) Medical Decision Making MDM Remarks 76 y/o male with suspected NPH, s/p placement of lumbar drain, day 1 (Mary Dixon) Plan Plan Remarks improvement of gait noted, will continue draining CSF today per Dr. Gonzalez to reassess again tomorrow cont lumbar draining per protocol appreciate medical and neurology assistance cont nonchemical dvt prophylaxis in view of lumbar drain (Mary Dixon) Attending Statement The exam, history, and the medical decision-making described in the above note were completed with the assistance of the mid-level provider. I reviewed and agree with the findings presented. I attest that I had a [id number] encounter with the patient on the same day, and personally performed and documented my assessment and findings in the medical record. (Artur Gonzalez MD) Mary Dixon September 14, 2016 11:53 Artur Gonzalez MD September 17, 2016 20:57
[2016-09-14 12:10] VITALS: BP 138/74; PULSE 63; RESP 18; TEMP 97.9; O2SAT 94
[2016-09-14 16:00] VITALS: BP 148/82; PULSE 70; RESP 18; TEMP 97.6; O2SAT 93
[2016-09-14 20:00] VITALS: BP 137/73; PULSE 73; RESP 20; TEMP 97.7; O2SAT 94
[2016-09-14] MEDS: PRAVASTATIN SOD 40 MG TAB PO SCH (21:21)
[2016-09-15] VITALS: BP 145/80; PULSE 73; RESP 20; TEMP 99; O2SAT 94
[2016-09-15] MEDS: ACETAMINOPHEN/HYDROcodone 325 MG/10 MG TAB PO PRN (00:26)
[2016-09-15 04:00] VITALS: BP 144/83; PULSE 84; RESP 20; TEMP 96.2; O2SAT 94
--- NOTE | 2016-09-15 08:02 | HHI.PR ---
Review/Management Diagnosis/Plan: (1) NPH (normal pressure hydrocephalus) Plan: day 2 lumbar drain felt his gait was better yesterday p.t. evals probable vp corporate development shunt f/u with Dr. Campo (2) Insomnia Plan: ambien (3) Depression Plan: wellbutrin (4) Dyslipidemia Plan: statin Subjective Subjective Comments No acute events reported felt like he walked better yesterday No headache No chest pain No dyspnea Active Medications Current Medications Medications (Trade) Dose Ordered Sig/Marlene Route Start Time Stop Time Status Last Admin (NS Flush) 2 ml UNSCH PRN IVF 09/13/16 10:45 (NS Flush) 2 ml BID IVF 09/13/16 10:45 09/14/16 21:00 (Colace) 100 mg BID PO 09/13/16 10:45 09/14/16 21:21 (Milk Of Magnesia Liq) 30 ml DAILY PRN PO 09/13/16 10:45 (Protonix) 40 mg DAILY PO 09/13/16 10:45 09/14/16 07:45 (Zofran Inj) 4 mg Q6H PRN IV 09/13/16 10:45 ([place] 10-325 Mg) 1 tab Q4H PRN PO 09/13/16 10:45 ([place] 10-325 Mg) 2 tab Q4H PRN PO 09/13/16 10:45 09/15/16 00:26 (Catapres) 0.1 mg Q6H PRN PO 09/13/16 10:45 (Tylenol) 650 mg Q4H PRN PO 09/13/16 10:45 (Ambien) 5 mg HS PRN PO 09/13/16 10:45 09/13/16 20:51 (Wellbutrin Sr) 150 mg BID PO 09/14/16 09:00 09/14/16 21:21 (Vitamin D3) 2,000 units DAILY PO 09/14/16 09:00 09/14/16 07:45 (Vitamin B12) 500 mcg DAILY PO 09/14/16 09:00 09/14/16 07:46 (Theragran M Tab) 1 tab DAILY PO 09/14/16 09:00 09/14/16 07:45 (Pravachol) 40 mg HS PO 09/13/16 21:00 09/14/16 21:21 (Vitamin E) 800 units DAILY PO 09/14/16 09:00 09/14/16 07:45 (Pill Splitter) 1 ea UNSCH PRN OTHER 09/13/16 11:30 (Flomax) 0.4 mg DAILY PO 09/15/16 09:00 Allergies Allergies Coded Allergies Iodine (Verified Adverse Reaction, Intermediate, Anaphylaxis, 09/07/16) Review of Systems All other ROS: ROS reviewed as documented in chart Exam I&O / VS 09/14/16 09/14/16 09/15/16 15:00 23:00 07:00 Intake Total 480 ml 240 ml 60 ml Output Total 980 ml 280 ml 100 ml Balance -500 ml -40 ml -40 ml Intake Oral 480 ml 240 ml 60 ml Output Urine Total 900 ml 250 ml 100 ml Drainage Total 80 ml 30 ml # Bowel Movements 0 0 Vital Signs Date Time Temp Pulse Resp B/P Pulse Ox O2 Delivery O2 Flow Rate FiO2 09/15/16 04:00 96.2 84 20 144/83 94 09/15/16 00:00 99.0 73 20 145/80 94 09/14/16 20:00 97.7 73 20 137/73 94 09/14/16 16:00 97.6 70 18 148/82 93 09/14/16 12:10 97.9 63 18 138/74 94 09/14/16 08:11 95.7 63 18 138/70 95 General: Alert and Oriented, No acute distress Eye: EOMI Respiratory: Non-labored respirations Cardiology: Normal rate Musculoskeletal: ROM Neurologic: Alert, Oriented, Normal sensory, Normal motor, CN II-XII intact, Normal DTR's Psychiatric: Cooperative, Appropriate mood & affect, Normal judgement, Non- suicidal Exam Comments ox 3, pleasant. eomi, face sym, no focal weakness. wide based gait reduced shemar, drain in place Objective Micro and Labs Date/Time Procedure Status Source Growth 09/13/16 11:48 Gram Stain - Final Resulted Cerebral Spinal Fluid Lumbar Puncture 09/13/16 11:48 CSF Culture - Preliminary Resulted Cerebral Spinal Fluid Lumbar Puncture NO GROWTH IN 24 HOURS. Problem Qualifiers (1) Insomnia: Qualified Code: G47.00 - Insomnia, unspecified type (2) Depression: Qualified Code: F32.9 - Depression, unspecified depression type Darrell Naqvi MD September 15, 2016 08:02
[2016-09-15] MEDS: MULTIVITAMINS/MINERALS THERAPEUTIC TAB PO SCH (08:15)
[2016-09-15] MEDS: DOCUSATE SODIUM 100 MG CAP PO SCH (08:15)
[2016-09-15] MEDS: buPROPion HCL 150 MG SUSTAINED RELEASE TAB PO SCH (08:15)
[2016-09-15] MEDS: PANTOPRAZOLE SOD 40 MG DELAYED RELEASE TAB PO SCH (08:15)
[2016-09-15] MEDS: CYANOCOBALAMIN 1,000 MCG TAB PO SCH (08:15)
[2016-09-15] MEDS: CHOLECALCIFEROL (VIT D3) 1000 UNIT TAB PO SCH (08:16)
[2016-09-15] MEDS: VITAMIN E 400 UNIT CAP PO SCH (08:16)
[2016-09-15] MEDS: SODIUM CHLORIDE 0.9% FLUSH 5 ML FLUSH IVF SCH (08:16)
[2016-09-15 08:26] VITALS: BP 129/73; PULSE 71; RESP 18; TEMP 97.6; O2SAT 94
[2016-09-15] MEDS ORDERED: TAMSULOSIN HCL 0.4 MG CAP PO SCH (09:00)
--- NOTE | 2016-09-15 10:32 | HHI.NSPN ---
Note Status Status: Progress Note Interval History Interval History day 1 s/p placement of lumbar drain, pt currently ambulating with PT, taking longer length of stride compared to baseline. He denies headaches, pain, nausea or vomiting. day 2 s/p lumbar drain. no significant change to gait compared to yesterday but patient reports better compared to prior drain placement. Also feels thinking is a bit better and maybe slight better urine control. After walking, pt was sat in chair as laying in bed aggravating his back pain. Upon sitting, he became nauseas and vomited his breakfast, he became pale and mildly diaphoretic. He denies chest pain, difficulty breathing. remained neurologically stable. He was layed back in bed legs elevated and with improvement in his color and symptoms. BP obtained 170/92 Labs, Micro, & Vital Signs Results Date Time Temp Pulse Resp B/P Pulse Ox O2 Delivery O2 Flow Rate FiO2 09/15/16 08:26 97.6 71 18 129/73 94 09/15/16 04:00 96.2 84 20 144/83 94 09/15/16 00:00 99.0 73 20 145/80 94 09/14/16 20:00 97.7 73 20 137/73 94 09/14/16 16:00 97.6 70 18 148/82 93 09/14/16 12:10 97.9 63 18 138/74 94 09/15/16 07:00 Intake Total 780 ml Output Total 1360 ml Balance -580 ml Constitutional Vital Signs Date Time Temp Pulse Resp B/P Pulse Ox O2 Delivery O2 Flow Rate FiO2 09/15/16 08:26 97.6 71 18 129/73 94 09/15/16 04:00 96.2 84 20 144/83 94 09/15/16 00:00 99.0 73 20 145/80 94 09/14/16 20:00 97.7 73 20 137/73 94 09/14/16 16:00 97.6 70 18 148/82 93 09/14/16 12:10 97.9 63 18 138/74 94 09/15/16 07:00 Intake Total 780 ml Output Total 1360 ml Balance -580 ml Review of Systems/Exam Exam Mr. Bahena is alert. Speech is fluent. Lumbar drain in place, secured, currently clamped. CSF clear. Cranial nerve examination: pupils equal, round, and reactive to light. EOMs are intact. Facial motor are normal and symmetrical. Neck is soft and supple. Muscle strength is 5/5 in all muscle groups of both upper and lower extremities. Gait: ambulated unassisted, fairly good length of stride Heart: NSR Lungs: clear to auscultate b/l Medications Current Medications Current Medications Medications (Trade) Dose Ordered Sig/Marlene Route PRN Reason Start Time Stop Time Status Last Admin Dose Admin IV Flush (NS Flush) 2 ml UNSCH PRN IVF FLUSH AFTER USING IV ACCESS 09/13/16 10:45 IV Flush (NS Flush) 2 ml BID IVF 09/13/16 10:45 09/15/16 08:16 Docusate Sodium (Colace) 100 mg BID PO 09/13/16 10:45 09/15/16 08:15 Magnesium Hydroxide (Milk Of Magnesia Liq) 30 ml DAILY PRN PO CONSTIPATION 09/13/16 10:45 Pantoprazole Sodium (Protonix) 40 mg DAILY PO 09/13/16 10:45 09/15/16 08:15 Ondansetron HCl (Zofran Inj) 4 mg Q6H PRN IV NAUSEA OR VOMITING 09/13/16 10:45 09/15/16 09:30 Acetaminophen/ Hydrocodone Bitart ([place] 10-325 Mg) 1 tab Q4H PRN PO PAIN SCALE 1 TO 5 09/13/16 10:45 Acetaminophen/ Hydrocodone Bitart ([place] 10-325 Mg) 2 tab Q4H PRN PO PAIN SCALE 6 TO 10 09/13/16 10:45 09/15/16 00:26 Clonidine (Catapres) 0.1 mg Q6H PRN PO SYS BP GREATER THAN 170 MMHG 09/13/16 10:45 Acetaminophen (Tylenol) 650 mg Q4H PRN PO TEMPERATURE > 101.5 F 09/13/16 10:45 Zolpidem Tartrate (Ambien) 5 mg HS PRN PO INSOMNIA 09/13/16 10:45 09/13/16 20:51 Bupropion HCl (Wellbutrin Sr) 150 mg BID PO 09/14/16 09:00 09/15/16 08:15 Cholecalciferol (Vitamin D3) 2,000 units DAILY PO 09/14/16 09:00 09/15/16 08:16 Cyanocobalamin (Vitamin B12) 500 mcg DAILY PO 09/14/16 09:00 09/15/16 08:15 Multivitamins/ Minerals Therapeutic (Theragran M Tab) 1 tab DAILY PO 09/14/16 09:00 09/15/16 08:15 Pravastatin Sodium (Pravachol) 40 mg HS PO 09/13/16 21:00 09/14/16 21:21 Vitamin E (Vitamin E) 800 units DAILY PO 09/14/16 09:00 09/15/16 08:16 Miscellaneous (Pill Splitter) 1 ea UNSCH PRN OTHER SEE LABEL COMMENTS 09/13/16 11:30 Tamsulosin HCl (Flomax) 0.4 mg DAILY PO 09/15/16 09:00 09/15/16 08:15 Medical Decision Making MDM Remarks 76 y/o male with suspected NPH, s/p placement of lumbar drain, day 2, overall gait appears better compared to his baseline, reports improvement in urine control and thinking vasovagal vs orthostatic, resolved Plan Plan Remarks dc lumbar drain, keep flat per protocol ok to dc tonight if vitals and medically stable neuro input appreciated, medical assistance appreciated f/u in office in 1-2 weeks to discuss possible [employer] shunt Mary Dixon September 15, 2016 10:32
--- NOTE | 2016-09-15 11:37 | HHI.FF ---
Face to Face Verification Diagnosis: (1) NPH (normal pressure hydrocephalus) (2) Falls (3) Memory deficit (4) Depression (5) Dyslipidemia Physical Therapy Order: Evaluate and Treat Home Health Nursing Order: Medical education Nursing assessment with vital signs I have seen patient Chace BahenaJr on 09/15/16. My clinical findings support the need for the requested home health care services because: Deconditioned w/ increased weakness Impaired cognition/judgement High risk of falls I certify that my clinical findings support that this patient is homebound because: Post-op weakness Unsteady gait/balance Need for psychosocial assistance Hannah Hooks [facility] September 15, 2016 11:36
--- NOTE | 2016-09-15 11:41 | HHI.PR ---
Subjective Remarks drain has been removed not much change in ambulation per nursing, appeared unsteady episode of n/v after he ambulated currently on bedrest post drain removal no cp no sob no fever at bsd Objective Objective Results - Vital Signs Date Time Temp Pulse Resp B/P Pulse Ox O2 Delivery O2 Flow Rate FiO2 09/15/16 08:26 97.6 71 18 129/73 94 09/15/16 04:00 96.2 84 20 144/83 94 09/15/16 00:00 99.0 73 20 145/80 94 09/14/16 20:00 97.7 73 20 137/73 94 09/14/16 16:00 97.6 70 18 148/82 93 09/14/16 12:10 97.9 63 18 138/74 94 I/O 09/14/16 09/14/16 09/14/16 09/15/16 09/15/16 09/15/16 07:00 15:00 23:00 07:00 15:00 23:00 Intake Total 480 ml 240 ml 60 ml Output Total 620 ml 980 ml 280 ml 100 ml 10 ml Balance -620 ml -500 ml -40 ml -40 ml -10 ml Intake Oral 480 ml 240 ml 60 ml Output Urine Total 500 ml 900 ml 250 ml 100 ml Drainage Total 120 ml 80 ml 30 ml 10 ml # Bowel Movements 0 0 0 Result Diagram: 09/14/16 0605 09/14/16 0605 Imaging Last Impressions Lumbar Puncture Fluoroscopy 09/13/16 1032 Signed Impressions: Service Date/Time: Tuesday, September 13, 2016 11:23 - CONCLUSION: Uncomplicated lumbar drain placement as above. Opening pressure at 33 cm of water. Samples of CSF sent to the lab. Deven Mehta Jr., MD Other Results Date/Time Procedure Status Source Growth 09/13/16 11:48 Gram Stain - Final Resulted Cerebral Spinal Fluid Lumbar Puncture 09/13/16 11:48 CSF Culture - Preliminary Resulted Cerebral Spinal Fluid Lumbar Puncture NO GROWTH IN 48 HOURS. ROS General: Other (poor historian ) GI: N/V Physical Exam Physical Exam GENERAL: This is a well-nourished, well-developed patient, in no apparent distress. SKIN: No rashes, ecchymoses or lesions. Cool and dry. HEAD: Atraumatic. Normocephalic. No temporal or scalp tenderness. EYES: Pupils equal round and reactive. Extraocular motions intact. No scleral icterus. No injection or drainage. ENT: Nose without bleeding, purulent drainage or septal hematoma. Throat without erythema, tonsillar hypertrophy or exudate. Uvula midline. Airway patent. NECK: Trachea midline. No JVD or lymphadenopathy. Supple, nontender, no meningeal signs. CARDIOVASCULAR: Regular rate and rhythm without murmurs, gallops, or rubs. RESPIRATORY: Clear to auscultation. Breath sounds equal bilaterally. No wheezes , rales, or rhonchi. GASTROINTESTINAL: Abdomen soft, non-tender, nondistended. No hepato-splenomegaly , or palpable masses. No guarding. MUSCULOSKELETAL: Extremities without clubbing, cyanosis, or edema. No joint tenderness, effusion, or edema noted. No calf tenderness. Negative Homans sign bilaterally. Lumbar drain in place NEUROLOGICAL: Awake and alert. Cranial nerves II through XII intact. Motor and sensory grossly within normal limits. Five out of 5 muscle strength in all muscle groups. Normal speech Urinary Catheter: No Vascular Central Line Catheter: No A/P Diagnosis: (1) NPH (normal pressure hydrocephalus) (2) Dyslipidemia (3) Depression (4) Memory deficit (5) Falls Assessment and Plan 76-year-old male with recent diagnosis of NPH, endorses history of progressive gait difficulties associated with poor memory and urinary incontinence. Underwent placement of lumbar drain. Continue with neuro checks LD removed, on bedrest -PT for ambulation-recommending HHC/PT, discussed with pt and both agreeable now. They had refused earlier. -Dr. Naqvi following -pt. states little improvement in gait today, states that he may go home today. 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 Further rec per Dr. Gonzalez Dyslipidemia Continue home medications Depression, stable Continue home medications History of falls, has had 2 in the last 2 weeks. Physical therapy for evaluation and treatment SCDs for DVT prophylaxis CM for dc planning, HHC ? [employer] shunt or poss dc D/W RN D/W Dr. Rangel D/W pt. This patient was seen by myself and Dr. Rangel, this note is written on his behalf Problem Qualifiers (1) Depression: Qualified Code: F32.9 - Depression, unspecified depression type (2) Falls: Qualified Code: W19.XXXD - Falls, subsequent encounter Hannah Hooks September 15, 2016 11:40
[2016-09-15 12:00] VITALS: BP 147/84; PULSE 71; RESP 18; TEMP 98.4; O2SAT 95
--- NOTE | 2016-09-15 12:20 | HHI.DCPOC ---
Discharge Care Plan Diagnosis: (1) NPH (normal pressure hydrocephalus) (2) Falls (3) Memory deficit Goals to Promote Your Health * To prevent worsening of your condition and complications * To maintain your health at the optimal level Directions to Meet Your Goals Take your medications as prescribed Follow your dietary instruction Follow activity as directed Keep your appointments as scheduled Take your immunizations and boosters as scheduled If your symptoms worsen call your PCP, if no PCP go to Urgent Care Center or Emergency Room Smoking is Dangerous to Your Health. Avoid second hand smoke Call the 24-hour hour crisis hotline for domestic abuse at Mary Dixon September 15, 2016 12:20
[2016-09-15 16:00] VITALS: BP 171/85; PULSE 80; RESP 18; TEMP 96.7; O2SAT 95
== END 2016-09-15 19:00 | disposition home health service (06) | DRG 57 ==
LOC: HROP 09:51 → HRIP 09:51 → HROP 18:19 → N05A 18:19
PROVIDERS: ADMIT Neurological Surgery; ATTEND Neurological Surgery
PROC: 009U3ZX Drainage of Spinal Canal, Percutaneous Approach, Diagnostic (ICD-10-PCS; principal; 2016-09-13)
PROC: B01BZZZ Fluoroscopy of Spinal Cord (ICD-10-PCS; 2016-09-13)
DX: G91.2 (Idiopathic) normal pressure hydrocephalus (principal); F32.9 Major depressive disorder, single episode, unspecified; R32 Unspecified urinary incontinence; G47.00 Insomnia, unspecified; E78.5 Hyperlipidemia, unspecified; K21.9 Gastro-esophageal reflux disease without esophagitis; M48.00 Spinal stenosis, site unspecified; Z91.81 History of falling; Z87.891 Personal history of nicotine dependence
CPT/HCPCS: 63741; 77003; 80048; 82945; 84157; 85027; 87070; 87205; 89051; 94150; 99152; 99153; J0690; J2250; J2405; J3010

== ENCOUNTER 2016-12-22 14:28 | Inpatient (IN) | payer MEDICARE ==
[~2016-12-22] VITALS: Ht 170.2 cm; Wt 94.5 kg
[~2016-12-22 14:28] MED LIST changes: -IBUP-988 PO; -MULT1TAB84 PO; -PRAV40TA2; +PRAV40TA2 PO; +TRAM50TA PO; -VITA10006 PO
[2016-12-25] MEDS ORDERED: E 101000 PO (13:36)
[2016-12-25] MEDS ORDERED: ONE-TAB14 PO (13:36)
[2017-01-03] MEDS ORDERED: POVIDONE IODINE 5% (ANTISEPSIS KIT) 4 APPLICATIONS EACH NARE PRN (09:15)
[2017-01-03] MEDS ORDERED: METOPROLOL TARTRATE 25 MG TAB PO PRN (09:15)
[2017-01-03] MEDS ORDERED: VANCOMYCIN HCL 1000 MG ON-CALL/NS 250 ML IV SCH ×2 (09:15)
[2017-01-03] MEDS ORDERED: SODIUM CHLORID 0.9% 500 ML IV PRN (09:15)
[2017-01-03] MEDS ORDERED: LACTATED RINGER'S 1000 ML IV PRN (09:15)
[2017-01-03] MEDS ORDERED: CHLORHEXIDINE GLUCONATE 2 % 1 PACK (2 CLOTHS) TOPICAL PRN (09:15)
[2017-01-03] MEDS ORDERED: INSULIN HUMAN REGULAR 1,000 UNITS/10 ML VIAL SQ PRN (09:15)
[2017-01-03] MEDS ORDERED: SODIUM CHLOR 0.9% 1000 ML INJ 1,000 ML IV SCH (09:30)
[2017-01-03] MEDS ORDERED: LACTATED RINGER'S 1000 ML INJ 1,000 ML IV ONE (12:00)
[2017-01-03] MEDS ORDERED: PROPOFOL 200 MG/20 ML AMP IV ONE (12:00)
[2017-01-03] MEDS ORDERED: ONDANSETRON HCL 4 MG/2 ML VIAL IV PUSH ONE (12:00)
[2017-01-03] MEDS ORDERED: BACITRACIN TOP OINT 15 GM TUBE ONE (12:10)
[2017-01-03] MEDS ORDERED: GENTAMICIN SULFATE 80 MG/2 ML VIAL ONE ×2 (12:10→12:12)
[2017-01-03] MEDS ORDERED: GELFOAM SIZE 100 ONE (12:10)
[2017-01-03] MEDS ORDERED: THROMBIN (TOPICAL) 5,000 UNIT VIAL ONE (12:12)
[2017-01-03] MEDS ORDERED: LIDOCAINE HCL 1% 50 ML VIAL ONE (12:13)
[2017-01-03] MEDS ORDERED: MIDAZOLAM HCL 2 MG/2 ML VIAL ONE (12:22)
[2017-01-03] MEDS ORDERED: FAMOTIDINE 20 MG/2 ML VIAL ONE (12:22)
[2017-01-03] MEDS ORDERED: fentaNYL CITRATE 250 MCG/5 ML AMP ONE ×2 (12:48→14:42)
[2017-01-03] MEDS ORDERED: ceFAZolin 2 GM PREMIX 50 ML ONE (13:11)
[2017-01-03] MEDS: ceFAZolin 2 GM PREMIX 50 ML IV SCH ×2 (13:14→20:39)
--- NOTE | 2017-01-03 13:16 | HHI.DCPOC ---
Discharge Care Plan Diagnosis: (1) S/P ventriculoperitoneal shunt (2) NPH (normal pressure hydrocephalus) Goals to Promote Your Health * To prevent worsening of your condition and complications * To maintain your health at the optimal level Directions to Meet Your Goals Take your medications as prescribed Follow your dietary instruction Follow activity as directed Keep your appointments as scheduled Take your immunizations and boosters as scheduled If your symptoms worsen call your PCP, if no PCP go to Urgent Care Center or Emergency Room Smoking is Dangerous to Your Health. Avoid second hand smoke Call the 24-hour hour crisis hotline for domestic abuse at [facility] Jan 03, 2017 13:16
[2017-01-03] MEDS ORDERED: SODIUM CHLORIDE 0.9% FLUSH 5 ML FLUSH IVF PRN (13:30)
[2017-01-03] MEDS ORDERED: ACETAMINOPHEN 325 MG TAB PO PRN (13:30)
[2017-01-03] MEDS ORDERED: ACETAMINOPHEN/HYDROcodone 325 MG/10 MG TAB PO PRN ×2 (13:30)
[2017-01-03] MEDS ORDERED: MORPHINE SULFATE 4 MG/ML INJ IV PUSH PRN ×2 (13:30)
[2017-01-03] MEDS ORDERED: PILL SPLITTER OTHER PRN (14:30)
[2017-01-03] MEDS ORDERED: SUGAMMADEX SODIUM 200 MG/2 ML VIAL IV PUSH ONE ×2 (14:42)
[2017-01-03] MEDS ORDERED: DO NOT ADM ANY ANTICOAGULANT DRUGS PRN (15:20)
--- NOTE | 2017-01-03 15:44 | PD.OP ---
Operative Report Date of Surgery: Jan 03, 2017 Preoperative Diagnosis: Hydrocephalus Postoperative Diagnosis: Hydrocephalus Procedure: Ventriculoperitoneal shunt Anesthesia: general Surgeon: Artur Gonzalez Installment Account Checker(s): Ellen Operation and Findings: INTRAOPERATIVE FINDINGS:~ Clear cerebrospinal fluid with an opening pressure of 240 mm of water. INDICATIONS FOR PROCEDURE: Mr Bahena is a 76 year old male with history of normal pressure hydrocephalus who presented with progressive gait imbalance and short term memory loss. He had chronic communicating hydrocephalus and his condition was getting progressively worse. He underwent evaluation with placement of a lumbar drain and cerebrospinal fluid drainage with very significant improvement in her symptoms. A ventriculoperitoneal shunt was indicated The [id number] details of the procedure, its indications, alternatives, risks , and potential complications of the surgery were fully discussed with the patient and his family. They fully understood. All their questions were answered. No guarantees were given. They voiced requesting the surgery and signed informed consent.They were offered the alternative of continuing nonsurgical treatment. DETAILS OF THE SURGICAL PROCEDURE:~ After the induction of general anesthesia, endotracheal intubation was performed. A Bonilla catheter, bilateral SANDRA hose and sequential compression devices were placed and kept throughout the procedure. The patient was positioned supine on a 30-80 table with the head over a gel doughnut. All pressure points were carefully padded with eggcrate mattress. The right frontotemporal parietal area was shaved prepped and draped in the usual sterile fashion, as well as the neck, chest and abdomen. A small incision was made in the patient's right upper quadrant with a #10 blade and the dissection was carried out through the subcutaneous tissue and Catherine's fascia. The rectus sheath was carefully opened with Metzenbaum scissors and the rectus muscles were split along its fibers. The posterior rectus sheath was elevated and carefully opened. The peritoneum was elevated with mosquitoes and opened in the standard fashion. The peritoneal cavity was visualized and exposed. A pursestring suture was placed around the peritoneal opening. Using a tunneler a subcutaneous tunnel was created connecting the abdominal incision with the planned head incision. A small incision was made in the right frontal area and a self-retaining retractor was placed in the incision. An entry point for the catheter was selected 90 mm posterior to the supraorbital rim and 25 mm lateral to the midline. A Midas Sebastian was used to create the yessica hole. The dura was coagulated with the bipolar in a cruciform fashion. A peritoneal catheter was placed in the subcutaneous tunnel previously created and a pocket was created underneath the galea for placement of the valve. A ShareThe programmable valve has calibrated at a pressure of 120 mmHg and flushed according to the vice president & general manager brand [place]'s instructions. The valve was secured to the proximal end of the peritoneal catheter using a 2-0 silk. Then, a ventricular catheter was advanced into the ventricular system. A good flow of cerebrospinal fluid was obtained.~ The catheter was connected to the valve and the connection secured with a 2-0 silk. Cerebrospinal fluid was noted to drip through the distal end of the peritoneal catheter. The peritoneal catheter was placed in the peritoneal cavity under direct visualization. The pursestring suture was carefully adjusted with special care not to strangulate the catheter. The rectus sheath was closed using interrupted 2-0 Vicryl suture. The Catherine's fascia was approximated with 3-0 Vicryl, and the subcutaneous with 3-0 Vicryl. The skin was closed with running subcuticular 4-0 Vicryl in the abdomen. The skin incision was closed using interrupted 3-0 Vicryl for the galea and reinaldo to the skin. At the end of the procedure, the sponge, needle and instrument counts were all correct. The estimated blood was less than 50 cc. No blood transfusion was given. No intraoperative complications occurred. The patient received preoperative prophylactic antibiotics. The patient was then extubated and transferred to the recovery room in stable condition. Artur Gonzalez MD Jan 03, 2017 15:44
[2017-01-03] MEDS: NS + KCL 20 MEQ INJ 1,000 ML IV SCH ×2 (16:00→23:11)
[2017-01-03] MEDS ORDERED: HYDR-3535 PO (16:17)
[2017-01-03] MEDS ORDERED: *morphine SULFATE 8 MG/ML PERIprocedure ONLY ONE (16:25)
--- NOTE | 2017-01-03 16:34 | HHI.DS ---
Discharge Summary Admission Date Jan 03, 2017 at 08:43 Discharge Date: Jan 04, 2017 Admitting Diagnosis s/p BUSINESS TECHNOLOGY ARCHITECT shunt (1) S/P ventriculoperitoneal shunt ICD Code: Z98.2 - Presence of cerebrospinal fluid drainage device Brief History Mr Bahena is a 76 year old male with history of normal pressure hydrocephalus who presented with progressive gait imbalance and short term memory loss. He had chronic communicating hydrocephalus and his condition was getting progressively worse. He underwent evaluation with placement of a lumbar drain and cerebrospinal fluid drainage with very significant improvement in her symptoms. A ventriculoperitoneal shunt was indicated Significant Findings Laboratory Tests Test 01/03/17 14:05 01/03/17 15:19 Imaging Last Impressions Head CT 01/04/17 0000 Signed Impressions: Service Date/Time: December 09:56 - CONCLUSION: Ventriculomegaly and possible small scalp hematoma on the left side and a clinical correlation is suggested.. Rukhsana Ricketts MD PE at Discharge Mr. Bahena is alert, awake and oriented to time, place and person. Speech is fluent. His wounds are dry with clean dressing. Cranial nerve examination: pupils equal, round and reactive to light. Extra- ocular movements are intact. Facial motor are symmetrical. Neck is soft and supple Muscle strength is normal in all muscle groups of both upper and lower extremities. Sensory examination is intact to light touch in both the upper and lower extremities. Heart: NSR Respiratory: clear Hospital Course Mr. Bahena underwent placement of ventriculoperitoneal shunt on Jan 03, 2017 for Normal Pressure Hydrocephalus. His surgery went well without complications. He was discharged home in stable conditions. Pt Condition on Discharge: Stable Discharge Disposition: Discharge Home Discharge Instructions DIET: Follow Instructions for: Heart Healthy Diet ACTIVITIES You can perform: Weight Bearing As Naa ADDITIONAL Activity Instructio: Avoid strenuous activities, falls or head trauma. Follow up Referrals: Neurosurgery @ [facility] - Dr Gonzalez with [facility] New Medications: Hydrocodone-Acetaminophen (Lortab) 10-325 Mg Tab 1 TAB PO Q8HR PRN for PAIN, #62 TAB 0 Refills Continued Medications: Bupropion HCl ER 24 HR (Bupropion HCl ER 24 HR) 300 Mg Tab 300 MG PO DAILY for Control Depression, TAB 0 Refills Cholecalciferol (Vitamin D3) 1,000 Unit Tab 2000 UNITS PO DAILY for Nutritional Supplement, #1 BOTTLE 0 Refills Cyanocobalamin (Vitamin B-12) 1,000 Mcg Subl 500 MCG SL DAILY for Nutritional Supplement, TAB.SL [address] (Nexium) 20 Mg Capdr 20 MG PO DAILY, CAP 0 Refills Multivitamin (One Daily Multivitamin) 1 Each Tablet 1 TAB PO DAILY Pravastatin (Pravastatin) 40 Mg Tab 40 MG PO HS, #90 Tamsulosin (Tamsulosin) 0.4 Mg Cap 0.4 MG PO HS for Manage Prostate Problems, #30 CAP 0 Refills Tramadol (Tramadol) 50 Mg Tab 50 MG PO Q8H PRN for PAIN, #60 TAB 0 Refills Vitamin E (E 1000) 1,000 Unit Cap 1 TAB PO DAILY [facility] Jan 03, 2017 16:34
[2017-01-03 16:39] LABS: SUPERNATE COLOR TUBE #1 CLEAR (CLEAR); WBC TUBE #1 0 /MM3 (0-10)
[2017-01-03 17:00] VITALS: BP 153/78; PULSE 68; RESP 16; TEMP 98; O2SAT 95
[2017-01-03] MEDS: METOCLOPRAMIDE HCL 10 MG/2 ML VIAL IM SCH ×2 (17:43→23:11)
[2017-01-03 20:00] VITALS: BP 154/78; PULSE 85; RESP 16; TEMP 97.8; O2SAT 92
[2017-01-03] MEDS: traMADol HCL 50 MG TAB PO PRN (20:39)
[2017-01-03] MEDS: SODIUM CHLORIDE 0.9% FLUSH 5 ML FLUSH IVF SCH (20:45)
[2017-01-03] MEDS ORDERED: TAMSULOSIN HCL 0.4 MG CAP PO SCH (21:00)
[2017-01-03] MEDS ORDERED: PRAVASTATIN SOD 40 MG TAB PO SCH (21:00)
[2017-01-04] VITALS: BP 123/79; PULSE 78; RESP 20; TEMP 99.3; O2SAT 94
[2017-01-04 04:00] VITALS: BP 121/61; PULSE 65; RESP 18; TEMP 97.8; O2SAT 95
[2017-01-04 08:00] VITALS: BP 127/74; PULSE 61; RESP 16; TEMP 97.7; O2SAT 96
[2017-01-04] MEDS: SODIUM CHLORIDE 0.9% FLUSH 5 ML FLUSH IVF SCH (08:56)
[2017-01-04] MEDS ORDERED: CYANOCOBALAMIN 1,000 MCG TAB PO SCH (09:00)
[2017-01-04] MEDS ORDERED: VITAMIN E PO SCH (09:00)
[2017-01-04] MEDS ORDERED: CHOLECALCIFEROL (VIT D3) 1000 UNIT TAB PO SCH (09:00)
[2017-01-04] MEDS ORDERED: VITAMIN E 400 UNIT CAP PO SCH (09:00)
[2017-01-04] MEDS ORDERED: PANTOPRAZOLE SODIUM 40 MG VIAL IVP SCH (09:00)
[2017-01-04] MEDS ORDERED: MULTIVITAMIN TAB PO SCH (09:00)
[2017-01-04] MEDS ORDERED: buPROPion HCL 150 MG SUSTAINED RELEASE TAB PO SCH (09:00)
[2017-01-04] MEDS ORDERED: NON-FORMULARY DRUG (Esomeprazole DR (Nexium) 20 MG) PO SCH (09:00)
[2017-01-04 09:48] LABS: CSF LYMPHOCYTES 0 %; CSF NEUTROPHILS 0 %
[2017-01-04] MEDS ORDERED: diphenhydrAMINE HCL 25 MG CAP PO ONE (10:00)
--- NOTE | 2017-01-04 10:33 | RADRPT ---
EXAM DATE/TIME: 01/04/2017 09:56 [facility] COMPARISON: No previous studies available for comparison. INDICATIONS : Post op shunt placement RADIATION DOSE: 42.90 CTDIvol (mGy) MEDICAL HISTORY : None SURGICAL HISTORY : None. ENCOUNTER: Initial ACUITY: 1 day PAIN SCALE: 0/10 LOCATION: cranial TECHNIQUE: Multiple contiguous axial images were obtained of the head. Using automated exposure control and adj ustment of the mA and/or kV according to patient size, radiation dose was kept as low as reasonably a chievable to obtain optimal diagnostic quality images. DICOM format image data is available electro nically for review and comparison. FINDINGS: There is no evidence for intracranial hemorrhage, mass effect, mass lesions, edema, or extra-axial fl uid collections. The visualized bony structures appear intact. Grade II ventriculomegaly is seen. T here is a right anterior frontal horn approach ventricular tube with tip at the level of the third ve ntricle. There are no signs of acute infarction for technique. There is slight scalp swelling in the left high convexity posterior parietal with subcutaneous nodule that measures 1.3 cm in size and clin ical correlation is suggested may be a small scalp hematoma. CONCLUSION: Ventriculomegaly and possible small scalp hematoma on the left side and a clinical correl ation is suggested.. Rukhsana Ricketts MD on January 04, 2017 at 10:29 Board Certified Radiologist. This report was verified electronically.
[2017-01-04 12:00] VITALS: BP 154/68; PULSE 71; RESP 16; TEMP 97.9; O2SAT 95
--- NOTE | 2017-01-04 12:37 | PD.CONS ---
HPI Service [facility] Hospitalists Consult Requested By Reason for Consult medical management Primary Care Physician Kp Hull MD Diagnoses: History of Present Illness patient is a 76 y/o male with history of normal pressure hydrocephalus who underwent WATER RESOURCES ENGINEER shunt. at the time of my evaluation he was resting comfortably with no distress with no pain, headache,sob,nausea or any other complaints. Review of Systems Constitutional: DENIES: Fever, Weight loss, Chills, Night Sweats Eyes: DENIES: Blurred vision, Diplopia, Vision loss, Double Vision Ears, nose, mouth, throat: DENIES: Tinnitus, Vertigo, Throat pain, Epistaxis Respiratory: DENIES: Apneas, Cough, Snoring, Wheezing, Hemoptysis, Sputum production, Shortness of breath Cardiovascular: DENIES: Chest pain, Palpitations, Syncope, Dyspnea on Exertion , PND, Lower Extremity Edema, Orthopnea, Claudication Gastrointestinal: DENIES: Abdominal pain, Black stools, Bloody stools, Constipation, Diarrhea, Nausea, Vomiting, Difficulty Swallowing, Anorexia Genitourinary: DENIES: Urinary frequency, Urgency, Hematuria, Dysuria Musculoskeletal: DENIES: Joint pain, Muscle aches, Stiffness, Joint Swelling Integumentary: DENIES: Rash Neurologic: DENIES: Abnormal gait, Headache, Localized weakness, Paresthesias, Seizures, Speech Problems, Tremor, Poor Balance Psychiatric: DENIES: Anxiety, Confusion, Mood changes, Depression, Hallucinations, Agitation, Suicidal Ideation, Homicidal Ideation, Delusions Past Family Social History Allergies: Coded Allergies: iodine (Unverified Allergy, Severe, anaphylaxis, 01/03/17) shellfish derived (Verified Allergy, Severe, anaphylaxis, 01/03/17) potassium iodide (Unverified Adverse Reaction, Intermediate, Anaphylaxis, 12/26/16) povidone-iodine (Unverified Adverse Reaction, Intermediate, Anaphylaxis, ) sodium iodide (Unverified Adverse Reaction, Intermediate, Anaphylaxis, ) Past Medical History NPH dyslipidemia Past Surgical History shoulder surgery. Reported Medications prevastatin flomax cholecalciferol multivitamin Bupropion Active Ordered Medications Current Medications Lactated Ringer's 1,000 ml @ 30 mls/hr Q24H PRN IV SEE LABEL COMMENTS Last administered on 01/03/17t 09:20; Start 01/03/17 at 09:15; Stop 01/06/17 at 09:14 Sodium Chloride 500 ml @ 30 mls/hr [id number] PRN IV SEE LABEL COMMENTS; Start at 09:15; Stop 01/06/17 at 09:14 Metoprolol Tartrate (Lopressor) 25 mg WEB SYSTEMS DEVELOPER PRN PO SEE LABEL COMMENTS; Start 01/03/17 at 09:15; Stop 01/06/17 at 09:14 Povidone Iodine (Betadine 5% Antisepsis Kit) 1 applic WEB SYSTEMS DEVELOPER PRN EACH NARE SEE LABEL COMMENTS Last administered on 01/03/17 09:30; Start 01/03/17 at 09:15 ; Stop 01/06/17 at 09:14 Chlorhexidine Gluconate (Chlorhexidine 2% Cloth) 3 pack WEB SYSTEMS DEVELOPER PRN TOPICAL SEE LABEL COMMENTS Last administered on 01/03/17 09:31; Start 01/03/17 at 09:15 ; Stop 01/06/17 at 09:14 Insulin Human Regular (NovoLIN R INJ) See Protocol Table ... WEB SYSTEMS DEVELOPER PRN SQ SEE PROTOCOL TABLE; Start 01/03/17 at 09:15; Stop 01/06/17 at 09:14 Vancomycin HCl 1000 mg/Sodium Chloride 250 ml @ 250 mls/hr WEB SYSTEMS DEVELOPER IV Last administered on 01/03/17 11:30; Start 01/03/17 at 09:15; Stop 01/06/17 at 09:14 Sodium Chloride 1,000 ml @ 30 mls/hr Q24H IV ; Start 01/03/17 at 09:30 Gelatin (Gelfoam 100 Top) 1 foam STK-MED ONCE .ROUTE Last administered on 13:48; Start 01/03/17 at 12:10; Stop 01/03/17 at 12:11; Status DC Bacitracin (Baciguent Oint) 15 applic STK-MED ONCE .ROUTE Last administered on 01/03/17 14:59; Start 01/03/17 at 12:10; Stop 01/03/17 at 12:11; Status DC Gentamicin Sulfate (Gentamicin Inj) 240 mg STK-MED ONCE .ROUTE ; Start 01/03/17 at 12:10; Stop 01/03/17 at 12:11; Status DC Thrombin (Thrombin Top Soln) 10,000 units STK-MED ONCE .ROUTE Last administered on 01/03/17 13:48; Start 01/03/17 at 12:12; Stop 01/03/17 at 12:13 ; Status DC Gentamicin Sulfate (Gentamicin Inj) 240 mg STK-MED ONCE .ROUTE Last administered on 01/03/17 13:48; Start 01/03/17 at 12:12; Stop 01/03/17 at 12:13 ; Status DC Lidocaine HCl (Xylocaine 1% Inj (50 ml)) 50 ml STK-MED ONCE .ROUTE Last administered on 01/03/17 13:48; Start 01/03/17 at 12:13; Stop 01/03/17 at 12:14 ; Status DC Midazolam HCl (Versed Inj) 2 mg STK-MED ONCE .ROUTE ; Start 01/03/17 at 12:22; Stop 01/03/17 at 12:23; Status DC Famotidine (Pepcid Inj) 20 mg STK-MED ONCE .ROUTE ; Start 01/03/17 at 12:22; Stop 01/03/17 at 12:23; Status DC Fentanyl Citrate (fentaNYL INJ) 250 mcg STK-MED ONCE .ROUTE ; Start 01/03/17 at 12:48; Stop 01/03/17 at 12:49; Status DC Cefazolin Sodium/ Dextrose 50 ml @ As Directed STK-MED ONCE .ROUTE ; Start 01/03 at 13:11; Stop 01/03/17 at 13:12; Status DC Potassium Chloride/Sodium Chloride 1,000 ml @ 100 mls/hr Q10H IV Last administered on 01/03/17 23:11; Start 01/03/17 at 14:00 IV Flush (NS Flush) 2 ml UNSCH PRN IVF FLUSH AFTER USING IV ACCESS; Start 01/03 at 13:30 IV Flush (NS Flush) 2 ml BID IVF Last administered on 01/04/17 08:56; Start at 21:00 Cefazolin Sodium/ Dextrose 50 ml @ 100 mls/hr Q8H IV Last administered on 01/03 20:39; Start 01/03/17 at 21:00; Stop 01/04/17 at 13:29 Pantoprazole Sodium (Protonix Inj) 40 mg DAILY IVP Last administered on 08:31; Start 01/04/17 at 09:00 Acetaminophen/ Hydrocodone Bitart ([place] 10-325 Mg) 1 tab Q4H PRN PO PAIN SCALE 1 TO 5; Start 01/03/17 at 13:30; Status UNV Acetaminophen/ Hydrocodone Bitart ([place] 10-325 Mg) 2 tab Q4H PRN PO PAIN SCALE 6 TO 10; Start 01/03/17 at 13:30; Status UNV Morphine Sulfate (Morphine Inj) 2 mg Q2H PRN IV PUSH PAIN SCALE 1 TO 6; Start 01/03/17 at 13:30 Morphine Sulfate (Morphine Inj) 4 mg Q2H PRN IV PUSH PAIN SCALE 7 TO 10; Start 01/03/17 at 13:30 Acetaminophen (Tylenol) 650 mg Q4H PRN PO TEMPERATURE > 101.5 F; Start at 13:30 Bupropion HCl (Wellbutrin Sr) 150 mg BID PO Last administered on 01/04/17 08: 32; Start 01/04/17 at 09:00 Cholecalciferol (Vitamin D3) 2,000 units DAILY PO Last administered on 08:32; Start 01/04/17 at 09:00 Cyanocobalamin (Vitamin B12) 500 mcg DAILY PO Last administered on 01/04/17 08 :32; Start 01/04/17 at 09:00 Pravastatin Sodium (Pravachol) 40 mg HS PO Last administered on 01/03/17 20:39 ; Start 01/03/17 at 21:00 Tamsulosin HCl (Flomax) 0.4 mg HS PO Last administered on 01/03/17 20:39; Start 01/03/17 at 21:00 Tramadol HCl (Ultram) 50 mg Q8H PRN PO PAIN 1-10 Last administered on 20:39; Start 01/03/17 at 13:30 Non-Formulary Medication 20 mg DAILY PO ; Start 01/04/17 at 09:00; Stop at 09:00; Status DC Multivitamins (Theragran) 1 tab DAILY PO Last administered on 01/04/17 08:32; Start 01/04/17 at 09:00 Non-Formulary Medication 1 tab DAILY PO ; Start 01/04/17 at 09:00; Stop at 09:00; Status DC Miscellaneous (Pill Splitter) 1 ea UNSCH PRN OTHER SEE LABEL COMMENTS; Start at 14:30 Vitamin E (Vitamin E) 400 units DAILY PO Last administered on 01/04/17 08:34; Start 01/04/17 at 09:00 Sugammadex Sodium (Bridion Inj) 200 mg STK-MED ONCE IV PUSH ; Start 01/03/17 at 14:42; Stop 01/03/17 at 14:43; Status DC Fentanyl Citrate (fentaNYL INJ) 250 mcg STK-MED ONCE .ROUTE ; Start 01/03/17 at 14:42; Stop 01/03/17 at 14:43; Status DC Metoclopramide HCl (Reglan Inj) 10 mg Q8H IM Last administered on 01/03/17 23: 11; Start 01/03/17 at 16:15; Stop 01/04/17 at 09:45; Status DC Miscellaneous Information ALL NURSING DEPARTME... UNSCH PRN .XX SEE LABEL COMMENTS; Start 01/03/17 at 15:20; Stop 01/04/17 at 15:19 Morphine Sulfate (*morphine INJ PERIprocedure ONLY) 8 mg STK-MED ONCE .ROUTE Last administered on 01/03/17 16:25; Start 01/03/17 at 16:25; Stop 01/03/17 at 16:26; Status DC Diphenhydramine HCl (Benadryl) 25 mg ONCE ONCE PO ; Start 01/04/17 at 10:00; Stop 01/04/17 at 10:01; Status DC Family History colon cancer in mother. Social History lives at home with his . Physical Exam Vital Signs Vital Signs Date Time Temp Pulse Resp B/P (MAP) Pulse Ox O2 Delivery O2 Flow Rate FiO2 01/04/17 08:00 97.7 61 16 127/74 (91) 96 01/04/17 04:00 97.8 65 18 121/61 (81) 95 01/04/17 04:00 18 01/04/17 00:00 99.3 78 20 123/79 (94) 94 01/03/17 20:00 97.8 85 16 154/78 (103) 92 01/03/17 17:00 98.0 68 16 153/78 (103) 95 01/03/17 16:30 97.6 67 12 146/71 (96) 96 Room Air 01/03/17 16:15 62 15 136/76 (96) 95 Room Air 01/03/17 16:00 65 15 125/64 (84) 95 Room Air 01/03/17 15:45 64 15 123/79 (94) 94 Room Air 01/03/17 15:30 67 10 144/86 (105) 94 Room Air 01/03/17 15:26 97.7 71 10 145/85 (105) 95 Room Air Physical Exam GENERAL: This is a well-nourished, well-developed patient, in no apparent distress. SKIN: No rashes, ecchymoses or lesions. Cool and dry. HEAD: Atraumatic. Normocephalic. No temporal or scalp tenderness. EYES: Pupils equal round and reactive. Extraocular motions intact. No scleral icterus. No injection or drainage. ENT: Nose without bleeding, purulent drainage or septal hematoma. Throat without erythema, tonsillar hypertrophy or exudate. Uvula midline. Airway patent. NECK: Trachea midline. No JVD or lymphadenopathy. Supple, nontender, no meningeal signs. CARDIOVASCULAR: Regular rate and rhythm without murmurs, gallops, or rubs. RESPIRATORY: Clear to auscultation. Breath sounds equal bilaterally. No wheezes , rales, or rhonchi. GASTROINTESTINAL: Abdomen soft, non-tender, nondistended. No hepato-splenomegaly , or palpable masses. No guarding. MUSCULOSKELETAL: Extremities without clubbing, cyanosis, or edema. No joint tenderness, effusion, or edema noted. No calf tenderness. Negative Homans sign bilaterally. NEUROLOGICAL: Awake and alert. Cranial nerves II through XII intact. Motor and sensory grossly within normal limits. Five out of 5 muscle strength in all muscle groups. Normal speech. Laboratory Laboratory Tests Test 01/03/17 14:05 01/03/17 15:19 CSF Glucose 60 CSF Total Protein 24.9 CSF Volume (Tube 1) 3.0 CSF Supernatant Color (tube 1) CLEAR CSF WBC (Tube 1) 0 CSF RBC (Tube 1) 468 CSF Neutrophils 0 CSF Lymphocytes 0 Date/Time Source Procedure Growth Status 01/03/17 14:05 Cerebral Spinal Fluid Shunt Fluid Gram Stain - Final Resulted 01/03/17 14:05 Cerebral Spinal Fluid Shunt Fluid CSF Culture - Preliminary NO GROWTH IN 24 HOURS. Resulted Imaging Last Impressions Head CT 01/04/17 0000 Signed Impressions: Service Date/Time: December 09:56 - CONCLUSION: Ventriculomegaly and possible small scalp hematoma on the left side and a clinical correlation is suggested.. Rukhsana Ricketts MD Assessment and Plan Assessment and Plan A/P - NPH- s/p WATER RESOURCES ENGINEER shunt placement- management per neurosurgery -dyslipidemia; resume statin -BPH; resume Flomax thank you for the consult. Discussed Condition With the patient and his . Clarisse Ruiz MD Jan 04, 2017 12:37
[2017-01-04] MEDS: traMADol HCL 50 MG TAB PO PRN (13:39)
== END 2017-01-04 14:46 | disposition home or self-care (01) | DRG 33 ==
LOC: HSDI 01-03 08:43 → N05B 01-03 16:38
PROVIDERS: ADMIT Neurological Surgery; ATTEND Neurological Surgery
PROC: 00160J6 Bypass Cerebral Ventricle to Peritoneal Cavity with Synthetic Substitute, Open Approach (ICD-10-PCS; principal; 2017-01-03 12:38)
DX: G91.2 (Idiopathic) normal pressure hydrocephalus (principal); E78.5 Hyperlipidemia, unspecified; Z80.0 Family history of malignant neoplasm of digestive organs; N40.0 Benign prostatic hyperplasia without lower urinary tract symptoms
CPT/HCPCS: 70450; 82945; 84157; 87070; 87205; 89051; 94150; C9113; J0690; J1580; J2250; J2270; J2405; J2765; J3010; J3370; J3480; J7050; J7120

== ENCOUNTER → 2016-12-25 | Outpatient (CLI) | payer MEDICARE ==
[~2016-12-25] MED LIST changes: +E 101000 PO; +HYDR-3535 PO; +IBUP-988 PO; +MULT1TAB84 PO; +ONE-TAB14 PO; +VITA10006 PO
[2016-12-25 11:08] LABS: BLOOD, URINE NEG (NEG); GLUCOSE,URINE NEG (NEG); KETONE, URINE NEG (NEG); NITRITE,URINE NEG (NEG); PH, URINE 5.5 (5.0-8.5); URINE COLOR YELLOW (YELLW/STRAW)
[2016-12-25 11:12] LABS: APTT (PATIENT) 27.6 SEC (24.3-30.1); PROTHROMBIN TIME - PATIENT 10.7 SEC (9.8-11.6)
[2016-12-25 11:13] LABS: BASOPHIL # 0.1 TH/MM3 (0-0.2); BASOPHIL % 0.6 % (0.0-2.0); EOSINOPHIL # 0.1 TH/MM3 (0-0.4); EOSINOPHIL % 1.1 % (0.0-4.0); HEMATOCRIT 51.4 % (39.0-51.0); HEMO FLAGS DIFF FINAL; LYMPH % 21.4 % (9.0-44.0); LYMPHOCYTE # 1.9 TH/MM3 (1.0-4.8); MEAN CELL VOLUME 87.5 FL (80.0-100.0); MEAN CORPUSCULAR HEMOGLOBIN 29.7 PG (27.0-34.0); MEAN CORPUSCULAR HGB CONC 33.9 % (32.0-36.0); MONO % 8.6 % (0.0-8.0); NEUT % 68.3 % (16.0-70.0); PLATELET COUNT 251 TH/MM3 (150-450); RED BLOOD COUNT 5.88 MIL/MM3 (4.50-5.90); RED CELL DISTRIBUTION WIDTH 13.1 % (11.6-17.2); WHITE BLOOD COUNT 8.8 TH/MM3 (4.0-11.0)
[2016-12-25 11:20] LABS: ANION GAP 8 MEQ/L (5-15); AST (GOT) 13 U/L (15-37); BICARBONATE 24.7 MEQ/L (21.0-32.0); BLOOD UREA NITROGEN 21 MG/DL (7-18); CHLORIDE 102 MEQ/L (98-107); GLOMERULAR FILTRATION RATE 54 ML/MIN (>89); GLUCOSE,FASTING 112 MG/DL (74-99); POTASSIUM 4.1 MEQ/L (3.5-5.1); SODIUM (NA) 135 MEQ/L (136-145)
[2016-12-25 11:21] LABS: ALT (GPT) 28 U/L (12-78)
[2016-12-25 11:22] LABS: COMMENT (UR) CULT NOT INDICATED; CULTURE IF INDICATED CULT NOT INDICATED
[2016-12-25 11:23] LABS: ALKALINE PHOSPHATASE 87 U/L (45-117); TOTAL BILIRUBIN ADULT 0.5 MG/DL (0.2-1.0)
--- NOTE | 2016-12-25 12:11 | RADRPT ---
EXAM DATE/TIME: 12/25/2016 11:38 [facility] COMPARISON: No previous studies available for comparison. INDICATIONS : Pre op for EDIPHONE OPERATOR shunt surgery. MEDICAL HISTORY : Spinal stenosis. Gastroesophageal reflux disease. Hyperlipidemia, incontinence, SURGICAL HISTORY : rotator cuff repair ENCOUNTER: Initial ACUITY: 1 day PAIN SCORE: 0/10 LOCATION: Bilateral upper chest FINDINGS: PA and lateral views of the chest demonstrate the lungs to be symmetrically aerated without evidence of mass, infiltrate or effusion. The cardiomediastinal contours are unremarkable. Osseous structure s are intact. CONCLUSION: No acute disease. Obey Coles MD FACR on December 25, 2016 at 12:10 Board Certified Radiologist. This report was verified electronically.
--- NOTE | 2016-12-25 16:47 | EKG ---
Date Performed: 12/25/2016 Time Performed: 10:48:09 PTAGE: 76 years EKG: Sinus rhythm MARKED LEFT AXIS DEVIATION PATTERN CONSISTENT WITH PULMONARY DISEASE NONSPECIFIC T-WAVE ABNORMALITY ABNORMAL ECG PREVIOUS TRACING 07/11/2003 08.40.45 Since previous tracing, no significant change noted DOCTOR: Areli Berman Interpretating Date/Time 12/25/2016 16:45:08
== END ==
LOC: CPRE 10:21
PROVIDERS: ATTEND Neurological Surgery
DX: Z01.812 Encounter for preprocedural laboratory examination (principal); Z01.811 Encounter for preprocedural respiratory examination; Z01.810 Encounter for preprocedural cardiovascular examination; G91.2 (Idiopathic) normal pressure hydrocephalus; K21.9 Gastro-esophageal reflux disease without esophagitis; E78.5 Hyperlipidemia, unspecified; R94.31 Abnormal electrocardiogram [ECG] [EKG]
CPT/HCPCS: 36415; 71020; 80053; 81001; 85025; 85610; 85730; 93005